=== PATIENT | female | born 1955 | race Caucasian/White ===

== ENCOUNTER → 2016-11-16 | Outpatient (CLI) | payer BC ==
[~2016-11-16] MED LIST: ASPI-113 PO; BNC5 PO; CLB/200 PO; ESCI1TAB10 PO; MULT-13 PO; MULT-506 PO; OXYC-292 PO; SULI200T PO
--- NOTE | 2016-11-16 08:36 | DIAGNOSTIC IMAGING REPORT ---
ABDOMINAL ULTRASOUND, RIGHT UPPER QUADRANT HISTORY: Pain. Nausea. ABNORMAL RESULTS OF LIVER FUNCTION TESTS. COMPARISON: None. FINDINGS: Pancreas: The pancreas demonstrates a normal echotexture. Liver: Fatty infiltration Gallbladder: Surgically removed CBD: 7 mm Right kidney: No hydronephrosis. IMPRESSION: 1. Fatty infiltration of liver. 2. Prior cholecystectomy. Electronically signed by: Regulo Mcintosh M.D. 11/16/2016 8:35 AM Dictated Date/Time: 11/16/2016 8:34 AM
== END | disposition home or self-care (01) ==
LOC: C.ULTRBC 11-13 08:19
PROVIDERS: ATTEND Family Medicine
DX: R94.5 Abnormal results of liver function studies (principal)

== ENCOUNTER → 2016-12-14 | Outpatient (CLI) | payer BC ==
--- NOTE | 2016-12-14 14:03 | MAMMOGRAPHY REPORT ---
BILATERAL DIGITAL SCREENING MAMMOGRAM TOMOSYNTHESIS WITH CAD: 12/14/2016 CLINICAL HISTORY: Routine screening. Patient has no complaints. TECHNIQUE: Breast tomosynthesis in addition to standard 2D mammography was performed. Current study was also evaluated with a Computer Aided Detection (CAD) system. COMPARISON: Comparison is made to exams dated: 12/11/2015 mammogram, 12/06/2014 mammogram, 12/04/2013 m ammogram, 12/02/2012 ultrasound, 12/02/2012 mammogram, and 11/25/2012 mammogram - [facility]. BREAST COMPOSITION: There are scattered areas of fibroglandular density in both breasts. FINDINGS: There is a possible small area of architectural distortion in the anterior right breast, 4 cm distal to the nipple and along the posterior nipple line on the CC view, for which additional spo t compression trauma symphysis views and possible ultrasound are recommended. There is a possible gr ouping of microcalcifications in the left lower inner middle one third of the breast, warranting josé miguel tional spot magnification views. There is a stable metallic biopsy marker in the left breast. No other suspicious mass, architectural distortion or cluster of microcalcifications is seen. IMPRESSION: ACR BI-RADS CATEGORY 0: INCOMPLETE EVALUATION: NEED ADDITIONAL IMAGING EVALUATION The possible grouping of microcalcifications in the left lower inner quadrant, and possible web architect ural distortion in the anterior right breast need additional imaging evaluation. The patient will be called to schedule an appointment. Approximately 10% of breast cancers are not detected with mammography. A negative mammographic report should not delay biopsy if a clinically suggestive mass is present. Vee Barron M.D. ay/:12/14/2016 12:22:20 Head Packager: Patience BAKER)(Abner), [facility] letter sent: Addl Imaging 0 BI-RADS Code: ACR BI-RADS Category 0: Incomplete Evaluation: Need Additional Imaging Evaluation
== END | disposition home or self-care (01) ==
LOC: C.MAMM 07:28
PROVIDERS: ATTEND Family Medicine
DX: Z12.31 Encounter for screening mammogram for malignant neoplasm of breast (principal); R92.0 Mammographic microcalcification found on diagnostic imaging of breast

== ENCOUNTER → 2016-12-21 | Outpatient (CLI) | payer BC ==
--- NOTE | 2016-12-21 16:06 | MAMMOGRAPHY REPORT ---
BILATERAL DIGITAL DIAGNOSTIC MAMMOGRAM TOMOSYNTHESIS AND TARGETED RIGHT ULTRASOUND: 12/21/2016 CLINICAL HISTORY: 61-year-old woman called back from screening mammography for possible architectural distortion in the right breast, and possible grouped microcalcifications in the left breast. Patien t has a history of prior benign left breast stereotactic biopsy. TECHNIQUE: Spot compression right CC and MLO tomosynthesis images, spot magnification left CC and ML views were obtained. COMPARISON: Comparison is made to exams dated: 12/14/2016 mammogram, 12/11/2015 mammogram, 12/06/2014 m ammogram, 12/04/2013 mammogram, 12/02/2012 ultrasound, and 12/02/2012 mammogram - [facility]. BREAST COMPOSITION: There are scattered areas of fibroglandular density in both breasts. FINDINGS: Spot magnification views of the left breast demonstrated approximately 2 loosely grouped a morphous microcalcifications in the lower inner middle to anterior aspect of the breast. There is a stable metallic biopsy marker from prior benign stereotactic biopsy. No obvious associated mass or a rchitectural distortion. The microcalcifications may have been present dating back to 2013 and are m ost likely benign. However, a short interval follow-up diagnostic mammogram including spot magnifica tion views is recommended to ensure stability in 6 months. The spot compression tomosynthesis views of the right breast demonstrate effacement of the possible a rchitectural distortion seen on the screening mammogram. No focal area of architectural distortion i s seen throughout the right breast on both views. There is a possible lobulated mass in the lateral anterior right breast on the spot compression CC tomosynthesis images measuring 6 mm. Further evalua tion with ultrasound was performed. Targeted ultrasound was performed in the right breast including the inferior breast 12:00, retroareol ar, 6:00 and slightly lateral breast. There is a mixed echogenicity multilobulated isoechoic and hyp oechoic solid versus cystic mass in the 9:00 periareolar right breast, measuring 4.0 x 3.9 x 4.0 mm. This may correlate with the nodular mammographic asymmetry seen on the spot compression right CC vie w and is indeterminate given the solid nature. Definitive characterization with an ultrasound-guided core biopsy is recommended. No other discrete solid or cystic mass or focal area of architectural d istortion is seen in the right breast on ultrasound. IMPRESSION: ACR BI-RADS CATEGORY 4B: INTERMEDIATE SUSPICION FOR MALIGNANCY, TARGETED ULTRASOUND ACR BI-RADS CATEGORY 4B: INTERMEDIATE SUSPICION FOR MALIGNANCY 1. Ultrasound guided core biopsy is recommended in the 9:00 periareolar right breast for a multilobu lated 4 mm hypoechoic solid-appearing mass identified on ultrasound, thought to correlate with a nodu lar mammographic asymmetry which was incidentally identified during diagnostic mammography. 2. The possible architectural distortion in the right breast effaces on the supplemental spot compre ssion tomosynthesis views, and there was no suspicious sonographic correlate suggesting this represen cortney overlapping fibrolinear markings. 3. Spot magnification views of the left breast demonstrate approximately 2 amorphous microcalcificat ions in the lower inner quadrant that have a benign appearance and were likely present on prior mammo grams dating back to 2013. However, pending benign pathology results and the right breast, a short i nterval follow-up diagnostic mammogram of the left breast including spot magnification views is read mad to ensure stability in 6 months. These results and recommendations were discussed with the patient at the time of the exam. She tenta tively scheduled the right breast biopsy and left breast follow-up appointment [facility] Approximately 10% of breast cancers are not detected with mammography. A negative mammographic report should not delay biopsy if a clinically suggestive mass is present. Vee Barron M.D. ay/:12/21/2016 14:48:49 Splitter Tender: Dina SMALLWOOD(Erasmo)(Abner), [facility] letter sent: Abnormal 4/5 BI-RADS Code: ACR BI-RADS Category 4B: Intermediate Suspicion For Malignancy Ultrasound BI-RADS: ACR BI-RADS Category 4B: Intermediate Suspicion For Malignancy
== END | disposition home or self-care (01) ==
LOC: C.MAMM 13:21
PROVIDERS: ATTEND Family Medicine
DX: R92.0 Mammographic microcalcification found on diagnostic imaging of breast (principal); N63 Unspecified lump in breast

== ENCOUNTER → 2016-12-29 | Outpatient (CLI) | payer BC ==
--- NOTE | 2016-12-29 14:13 | Discharge Instructions ---
Discharge Instructions Procedure Procedure Date: Dec 29, 2016. Reason for visit: Right Mass. Discharge Discharge Date: Dec 29, 2016. Discharge Diagnosis: post right breast ultrasound guided core biopsy Instructions Activity Recommendations: Additional Limitations (see below) Return to School/Work: no limitations Recommended Home Diet: No Limitations Provider Instructions: ACTIVITY RECOMMENDATIONS: * No lifting, pushing, pulling or exercising the affected side for three days. RETURN TO SCHOOL/WORK: * You may return to work/school after the procedure, but do not perform any strenuous activities for 24 to 48 hours. MEDICATIONS: * Tylenol (two 325 mg) every four to six hours if needed for mild pain (if not allergic to Tylenol). DIET: * Resume previous diet. SPECIAL CARE INSTRUCTIONS: * Keep biopsy site dry for 24 hours. May shower after 24 hours, but do not soak (bathe) incision. * May remove Tegaderm (plastic patch) tomorrow AFTER showering. * Leave the steri-strips on for one week. Allow the steri-strips to fall off by themselves. If not off after one week, you may remove them. You may place a Bandaid crosswise over the strips, if desired. * Apply ice 10 minutes on and 10 minutes off as needed. * Wear a bra at bedtime to sleep more comfortably for 2-3 days. * Your referring physician should have the results after approximately 5 to 7 business days. * Call for unusual bleeding, fever, drainage, etc or if you have any questions call [phone] during normal business hours or after hours call Dr Barron, . FOLLOW UP VISIT: Follow-up with Referring Physician as scheduled. Allergies Coded Allergies: No Known Allergies (Verified , 12/23/12) Nessa Marrufo Recommendations: Call your doctor if: * Temperature above 101 degrees * Pain not relieved by pain medicine ordered * There is increased drainage or redness from any incision * You have any unanswered questions or concerns. Your Doctors Instructions noted above were prepared by provider Vee Barron. Patient Signature Section: Patient Instructions Signature Page Hanny Oh Patient (or Guardian) Signature/Date: I have read and understand the instructions given to me by my caregivers. Caregiver/RN/Doctor Signature/Date: The above-named patient and/or guardian has received patient instructions on this date. + Original Patient Signature Page (only) stays with chart. Please make copy for patient.
--- NOTE | 2016-12-29 14:35 | MAMMOGRAPHY REPORT ---
UNILATERAL RIGHT DIGITAL DIAGNOSTIC MAMMOGRAM TOMOSYNTHESIS: 12/29/2016 CLINICAL HISTORY: Status post ultrasound guided core biopsy of a small nodular and multilobulated hyp oechoic 4 mm mass in the 9:00 right breast. Please refer to the report from right breast ultrasound guided core biopsy performed at the same time for full detail. IMPRESSION: POST PROCEDURE IMAGING FOR MARKER PLACEMENT Please refer to the report from right breast ultrasound guided core biopsy performed at the same time for full detail. Approximately 10% of breast cancers are not detected with mammography. A negative mammographic report should not delay biopsy if a clinically suggestive mass is present. Vee Barron M.D. ay/:12/29/2016 14:11:58 Chrome Tanning Drum Operator: Kathrine SMALLWOOD(Erasmo)(Abner), [facility] BI-RADS Code: Post Procedure Imaging For Marker Placement
--- NOTE | 2016-12-29 14:35 | MAMMOGRAPHY REPORT ---
THIS REPORT HAS BEEN AMENDED. ULTRASOUND GUIDED BIOPSY RIGHT BREAST: 12/29/2016 CLINICAL HISTORY: Indeterminate multilobulated/nodular hypoechoic 4 mm mass in the 9:00 periareolar r ight breast. Patient presents for ultrasound guided core biopsy. COMPARISON: Comparison is made to exams dated: 12/21/2016 mammogram, 12/21/2016 ultrasound, 12/14/2016 ma mmogram, 12/11/2015 mammogram, 12/06/2014 mammogram, and 12/04/2013 mammogram - [facility]. PATIENT CONSENT: The procedure, risks and benefits were discussed with the patient and informed conse nt was obtained both verbally and in writing. Specific risks to this procedure include: bleeding, in fection, puncture of adjacent structure, nontarget biopsy, sampling error, pain, metal allergy and me dication reaction. PROCEDURE DESCRIPTION: A time out was performed and the right breast was agreed as the site of biopsy . The skin was prepped and draped in the usual sterile fashion. The multilobulated hypoechoic mass in the 9:00 right breast was chosen as the target for biopsy. Subcutaneous and intraparenchymal 1% buff ered lidocaine, with and without epinephrine, was administered as local anesthesia. A skin incision w as made. Through the incision, 5 samples were taken with a 14 gauge Achieve biopsy device. A ribbon shaped metallic marker was placed at the biopsy site. Hemostasis was achieved after manual compressio n. The patient tolerated the procedure well and there was no immediate complication. The samples wer e sent to the pathology department in an appropriately labeled container. Postprocedure right CC and ML tomosynthesis images were obtained. A new ribbon-shaped metallic biops y marker is identified in the 9:00 anterior right breast. A 7 x 15 mm asymmetry is seen near the bio psy marker clip which could represent a combination of small amount of hemorrhage and/or lidocaine ad ministration. IMPRESSION: ULTRASOUND GUIDED BIOPSY 1. Status post ultrasound guided core biopsy of an indeterminate multilobulated 4 mm mass in the 9:0 0 right breast, with biopsy marker placed at the site. 2. Pending benign pathology results, recommend follow-up bilateral diagnostic mammograms, to reevalu ate left breast microcalcifications, and a possible area of architectural distortion as well as asymm etry in the right breast. The patient will receive notification of the biopsy results from her referring physician. Vee Barron M.D. ay/:12/29/2016 14:26:14 Small Lot Operator: Kathrine BAKER (R)), [facility] AMENDMENT: 01/06/2017 Vee Barron M.D. Pathology results from the ultrasound-guided core biopsy of a multilobulated hypoechoic mass in the 9 :00 periareolar right breast yielded 1. Fibrocystic change, intraductal hyperplasia, and papillomato sis are all seen. 2. Level III reveals a cystic space with a papillary proliferation most consisten t with a papillary neoplasm. 3. The papillary neoplasm noted above lacks cytologic atypia and revea ls myoepithelial cells H and E stain. 4. The majority of the tissue in this case simply reveals fib rocystic change and intraductal hyperplasia area at level III reveals a well-defined cystic space wit h a papillary proliferation in which the papillary reveal well-defined fibrovascular cores. Clearly, this is most consistent with a papillary neoplasm. The literature concerning excision of partially sampled, benign-appearing papillary neoplasms which are found on biopsy is not entirely consistent. It should be noted that the papillary neoplasm found on level III lacks cytologic atypia. Upon rereview of all prior mammograms including the postprocedure mammograms, the biopsy marker clip aligns with a nodular asymmetry that has been stable in size dating back to at least 11/19/2011, sugg esting this lesion has not significantly changed over the past 5 years. Additionally, the patient is due for follow-up imaging of the right breast in 6 months, as the biopsy marker clip did not align w ith the original area of possible distortion. Nevertheless, surgical consultation for discussion of possible imaging follow-up versus surgical exc isional biopsy is recommended.
== END | disposition home or self-care (01) ==
LOC: C.MAMM 13:23
PROVIDERS: ATTEND Family Medicine
DX: R92.8 Other abnormal and inconclusive findings on diagnostic imaging of breast (principal); N63 Unspecified lump in breast; N62 Hypertrophy of breast; D24.1 Benign neoplasm of right breast

== ENCOUNTER → 2017-06-30 | Outpatient (CLI) | payer OTHER ==
[~2017-06-30] MED LIST changes: +ASPI81TA28 PO; +BUPR100T8 PO; +GLIP-199 PO; +METF-384 PO; +PRAV10TA39 PO; +SITA100T3 PO; +SULI200T4 PO
--- NOTE | 2017-06-30 15:24 | MAMMOGRAPHY REPORT ---
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 She presents for evaluation of both breasts and to reassess a small focal asymmetry with associated microcalcifications in the lo wer inner quadrant of the left breast. TECHNIQUE: Breast tomosynthesis in addition to standard 2D mammography was performed. Spot magnific ation left CC and ML views were also obtained. Current study was also evaluated with a Hair Dresser d Detection (CAD) system. COMPARISON: Comparison is made to exams dated: 12/29/2016 mammogram, 12/29/2016 ultrasound biopsy, 12/21 mammogram, 12/21/2016 ultrasound, 12/14/2016 mammogram, and 12/11/2015 mammogram - [facility]. BREAST COMPOSITION: There are scattered areas of fibroglandular density in both breasts. FINDINGS: There is expected architectural distortion in the upper outer quadrant of the right breast, at the site of recent excisional biopsies. No suspicious mass, unexpected architectural distortion, asymmetry or cluster of microcalcifications is seen in the right breast. Spot magnification views of the left breast redemonstrate a rectangular 9.6 mm focal asymmetry with o f approximately 3 punctate/amorphous microcalcifications in the lower inner middle one third of the b reast. When comparing back to prior spot magnification views, these have not significantly changed c omparing to the spot magnification views obtained on 12/21/2016, and the appearance is very similar d ating back to the 2014 mammograms. The asymmetry has likely been present dating back to at least 200 8, suggesting benignity. However, given the recent diagnosis of right breast atypia, a 12 month foll ow-up left diagnostic mammogram including spot magnification views is recommended to ensure stability . No other new suspicious masses, calcifications, asymmetries or areas of architectural distortion a re identified in the left breast. There is a stable metallic biopsy marker clip in the inferior left breast. IMPRESSION: ACR-BI-RADS CATEGORY 3: PROBABLY BENIGN 1. Expected post surgical changes in the right breast and stable focal asymmetry with few associated punctate/amorphous macro calcifications in the left lower inner breast. Another 12 month follow-up bilateral diagnostic tomosynthesis mammogram including left spot magnification views is recommended t o ensure longer stability of the asymmetry and microcalcifications. These results and recommendations were discussed with the patient at the time of the exam. Approximately 10% of breast cancers are not detected with mammography. A negative mammographic report should not delay biopsy if a clinically suggestive mass is present. Vee Barron M.D. ay/:06/30/2017 09:22:59 Fish Cleaner Machine Tender: Ethan SMALLWOOD(R)(Abner), [facility] letter sent: Follow Up Recommended 3 BI-RADS Code: ACR-BI-RADS Category 3: Probably Benign
== END | disposition home or self-care (01) ==
LOC: C.MAMM 08:27
PROVIDERS: ATTEND Family Medicine
DX: Z09 Encounter for follow-up examination after completed treatment for conditions other than malignant neoplasm (principal); R92.0 Mammographic microcalcification found on diagnostic imaging of breast

== ENCOUNTER → 2017-07-14 | Outpatient (CLI) | payer OTHER ==
[~2017-07-14] MED LIST changes: -ASPI-113 PO; -CLB/200 PO; -MULT-13 PO; -MULT-506 PO; +OPTIRAY 320 IV PRN; -OXYC-292 PO; -SULI200T PO
--- NOTE | 2017-07-14 08:58 | DIAGNOSTIC IMAGING REPORT ---
ABD WITH IV CONTRAST ONLY (CT) HISTORY: 61 years-old Female presents with acute ventral abdominal wall hernia and generalized abdominal pain . COMPARISON: Abdominal ultrasound 11/16/2016 TECHNIQUE: Multiple axial CT images of the abdomen were obtained following the intravenous administration of 93 mL Optiray 320. FINDINGS: There is mild dependent subsegmental bibasilar atelectasis. Solid pleural-based 5 mm nodule of the right lower lobe is seen on image 63 of series 3 with mild adjacent tenting of the underlying subpleural fat. There are additional solid noncalcified nodules of the bilateral lower lobes measuring up to 4 mm. There is no pneumatosis or pneumoperitoneum identified. Imaged inferior cardiac chambers appear mildly enlarged. Hepatomegaly with hepatic steatosis. Prior cholecystectomy. The spleen, pancreas and left adrenal gland are unremarkable. 1.5 x 1.8 cm right adrenal gland adenoma is present. Mild nonspecific bilateral perinephric stranding without renal calculi or obstructive uropathy. Imaged ureters appear unremarkable. Imaged uterus appears unremarkable. Aorta is normal in course and caliber. No bulky adenopathy. There is no bowel obstruction. There is a large ventral abdominal wall hernia along the right lateral abdominal wall which contains the hepatic flexure, cecum, ascending colon, appendix and terminal ileum along with a large amount of mesenteric fat. There is mild stranding of the mesenteric fat within the hernia sac along with trace fluid. Opening of the hernia sac measures 16.5 cm. There is evidence of prior antral abdominal wall herniorrhaphy. Patient obesity noted. The bones appear to be grossly intact. Severe facet arthropathy of the lower lumbar spine along with multilevel discogenic degenerative changes. Multilevel Schmorl's nodes are also seen. IMPRESSION: 1. Large ventral abdominal wall hernia along the right lateral abdominal wall contains hepatic flexure, cecum, ascending colon, appendix and terminal ileum along with a large amount of mesenteric fat. There is mild mesenteric fat stranding with trace fluid within the hernia sac without evidence of bowel obstruction. 2. Hepatomegaly with hepatic steatosis. 3. Several solid noncalcified pulmonary nodules of the lung bases as above measure up to 5 mm. Please refer to below summary of Fleischner criteria recommendations for follow-up of incidental CT nodules (Levi Tuttle, Guidelines for management of small pulmonary nodules detected on CT scans: A statement from the Fleischner Society, Radiology 237: [phone].) SOLID NODULES Multiple nodules size: <6 mm * Low risk patients: no routine follow-up * high risk patients: optional CT at 12 months Note: newly detected indeterminate nodule in persons 35 years of age or older. * Low risk patients: minimal or absent history of smoking and/or other known risk factors * high risk patients: history of smoking or of other known risk factors (e.g. first degree relative with lung cancer, or exposure to asbestos, radon, uranium) * if a nodule up to 8 mm is partly solid or is ground glass further follow-up is required after 24 months to exclude possible slow growing adenocarcinoma (SUZETTE) The above report was generated using voice recognition software. It may contain grammatical, syntax or spelling errors. Electronically signed by: Fredis Bui M.D. 07/14/2017 8:57 AM Dictated Date/Time: 07/14/2017 8:44 AM
== END | disposition home or self-care (01) ==
LOC: C.CTS 07:54
PROVIDERS: ATTEND Family Medicine
DX: K43.9 Ventral hernia without obstruction or gangrene (principal); R10.9 Unspecified abdominal pain

== ENCOUNTER → 2017-07-16 | Day surgery (SDC) | payer OTHER ==
[2017-07-05 09:25] VITALS: Ht 175.3 cm; Wt 159.1 kg
[~2017-07-16] VITALS: Ht 175.3 cm; Wt 159.1 kg
[~2017-07-16] MED LIST changes: +LIDOCAINE HCL 2% 2 ML VIAL (20MG/ML) ONE; -OPTIRAY 320 IV PRN; +PROPOFOL IV EMULSION 10 MG/ML 20 ML VIAL IV ONE
--- NOTE | 2017-07-16 13:22 | Endo History and Physical ---
History & Physical Date of Service: Jul 16, 2017. Chief Complaint: Screening Referring Physician: Ac Cuevas History of Present Illness For colonoscopy Past Surgical History Hx Cardiac Surgery: No Hx Internal Defibrillator: No Hx Pacemaker: Yes Hx Abdominal Surgery: Yes (cholecystectomy, herniorrhaphy) Hx of Implantable Prosthesis: No Hx Post-Op Nausea and Vomiting: No Hx Cancer Surgery: No Hx Thoracic Surgery: No Hx Orthopedic: Yes (RIGHT/LEFT TKA) Hx Urinary Tract Surgery: No Family History IBD Social History Smoking Status: Never Smoker Hx Substance Use: No Hx Alcohol Use: No Allergies Coded Allergies: No Known Allergies (Verified , 07/16/17) Current Medications Reported Home Medications Medications Dose Route/Sig Max Daily Dose Days Date Category Clinoril (Sulindac) 200 Mg Tab 200 Mg PO BID 07/05/17 Reported Pravastatin Sodium 10 Mg Tab 10 Mg PO QAM 07/05/17 Reported Glucophage (Metformin Hcl) 1,000 Mg Tab 1,000 Mg PO QAM 07/05/17 Reported Glucophage (Metformin Hcl) 1,000 Mg Tab 1,500 Mg PO QPM 07/05/17 Reported Glipizide Er (Glipizide) 10 Mg Tab 1 Tab PO BID 07/05/17 Reported Wellbutrin Sr (Bupropion HCl) 100 Mg Ertab 100 Mg PO QAM 07/05/17 Reported Aspirin Ec (Aspirin) 81 Mg Tab 81 Mg PO QAM 07/05/17 Reported Januvia (Sitagliptin Phosphate) 100 Mg Tab 100 Mg PO QAM 07/05/17 Reported Lexapro (Escitalopram Oxalate) 20 Mg Tab 20 Mg PO HS 12/23/12 Reported Benicar (Olmesartan Medoxomil) 5 Mg Tab 5 Mg PO QAM 12/23/12 Reported Vital Signs Weight (Kilograms): 159.09 Height (Feet): 5 Height (Inches): 9 Date Time Temp Pulse Resp B/P (MAP) Pulse Ox O2 Delivery O2 Flow Rate FiO2 07/16/17 12:59 37 71 20 160/88 (112) 94 Room Air Physical Exam General Appearance: + obese Respiratory/Chest: Respiratory effort: no dyspnea Cardiovascular: Heart Auscultation: RRR Abdomen: Bowel Sounds: pertinent finding (Large right incisional hernia) Assessment and Plan For screening colonoscopy
--- NOTE | 2017-07-16 13:51 | Discharge Instructions ---
Endoscopy Patient Instructions Date / Procedure(s) Performed Jul 16, 2017. Colonoscopy Allergy Information Coded Allergies: No Known Allergies (Verified , 07/16/17) Discharge Date / Findings Jul 16, 2017. Diverticulosis, hemorrhoids, hernia Medication Instructions Stopped Medication(s): Metformin stopped 07/13/17 Aspirin stopped 07/14/17 Restart Stopped Medication(s): resume meds Reported Home Medications Medications Dose Route/Sig Max Daily Dose Days Date Category Clinoril (Sulindac) 200 Mg Tab 200 Mg PO BID 07/05/17 Reported Pravastatin Sodium 10 Mg Tab 10 Mg PO QAM 07/05/17 Reported Glucophage (Metformin Hcl) 1,000 Mg Tab 1,000 Mg PO QAM 07/05/17 Reported Glucophage (Metformin Hcl) 1,000 Mg Tab 1,500 Mg PO QPM 07/05/17 Reported Glipizide Er (Glipizide) 10 Mg Tab 1 Tab PO BID 07/05/17 Reported Wellbutrin Sr (Bupropion HCl) 100 Mg Ertab 100 Mg PO QAM 07/05/17 Reported Aspirin Ec (Aspirin) 81 Mg Tab 81 Mg PO QAM 07/05/17 Reported Januvia (Sitagliptin Phosphate) 100 Mg Tab 100 Mg PO QAM 07/05/17 Reported Lexapro (Escitalopram Oxalate) 20 Mg Tab 20 Mg PO HS 12/23/12 Reported Benicar (Olmesartan Medoxomil) 5 Mg Tab 5 Mg PO QAM 12/23/12 Reported Provider Instructions Activity Restrictions - No exercising or heavy lifting for 24 hours. - Do not drink alcohol the day of the procedure. - Do not drive a car or operate machinery until the day after the procedure. - Do not make any important decisions or sign important papers in 24 hours after the procedure. Following Day: - Return to full activity which may include returning to work/school. Diet Start your diet with liquids and light foods (jello, soup, juice, toast). Then eat your usual diet if not nauseated. Treatment For Common After Affects For mild abdominal pain, bloating, or excessive gas: - Rest - Eat lightly - Lie on right side Follow-Up Information Follow-up with Ac Cuevas as scheduled Anesthesia Information What You Should Know You have had a procedure that required some medicine to reduce anxiety and discomfort. This treatment is called moderate sedation. After receiving the treatment, you may be sleepy, but you will be able to breathe on your own. The effects of the treatment may last for several hours. Follow these instructions along with Activity/Diet recommendations noted above: * Do NOT do anything where dizziness or clumsiness would be dangerous. * Rest quietly at home today, then you can be up and about tomorrow. * Have a responsible person stay with you the rest of today. * You may have had an I.V. today. If so, you may take the dressing off later today. Recommendations Call your doctor if: * Trouble breathing * Continuous vomiting for more than 24 hours * Temperature above 101 degrees * Severe abdominal pain or bloating * Pain not relieved by pain medicine ordered * There is increased drainage or redness from any incision * A large amount of rectal bleeding greater than 2-3 tablespoons. (If you had a polyp/s removed or have hemorrhoids, a small amount of blood - from the rectum is to be expected.) * You have any unanswered questions or concerns. IN THE EVENT OF A SERIOUS EMERGENCY, GO TO THE NEAREST EMERGENCY ROOM Your discharge instructions were prepared by provider Johnnie Ely. Patient Instructions Signature Page Hanny Oh Patient (or Guardian) Signature/Date: I have read and understand the instructions given to me by my caregivers. Caregiver/RN/Doctor Signature/Date: The above-named patient and/or guardian has received patient instructions on this date. + Original Patient Signature Page (only) stays with chart. Please make copy for patient.
--- NOTE | 2017-07-16 13:55 | GI REPORT ---
Procedure Date: 07/16/2017 1:28 PM Procedure: Colonoscopy Indications: Screening for colorectal malignant neoplasm Medicines: Propofol total dose 300 mg IV, Lidocaine 40 mg IV Complications: No immediate complications. Estimated Blood Loss: Estimated blood loss: none. Procedure: Pre-Anesthesia Assessment: - Prior to the procedure, a History and Physical was performed, and patient medications, allergies and sensitivities were reviewed. The patient's tolerance of previous anesthesia was reviewed. - The risks and benefits of the procedure and the sedation options and risks were discussed with the patient. All questions were answered and informed consent was obtained. After I obtained informed consent, the scope was passed under direct vision. Throughout the procedure, the patient's blood pressure, pulse, and oxygen saturations were monitored continuously. The scope was introduced through the anus with the intention of advancing to the cecum. The scope was advanced to the transverse colon before the procedure was aborted. Medications were given. The colonoscopy was technically difficult and complex due to ventral hernia. The patient tolerated the procedure well. The quality of the bowel preparation was good. Findings: Non-bleeding internal hemorrhoids were found during endoscopy. The hemorrhoids were mild. A few diverticula were found in the sigmoid colon. Incomplete exam Impression: - Non-bleeding internal hemorrhoids. - Diverticulosis in the sigmoid colon. - No specimens collected. Recommendation: - Discharge patient to home (ambulatory). - Continue present medications. - Return to primary care physician PRN. Johnnie Ely M.D. Johnnie Ely MD 07/16/2017 1:55:27 PM This report has been signed electronically. Note Initiated On: 07/16/2017 1:28 PM I attest to the content of the Intraoperative Record and orders documented therein, exceptions below
[2017-07-16 14:25] VITALS: BP 152/78; PULSE 67; O2SAT 97
--- NOTE | 2017-07-16 14:53 | Anesthesiology Progress Note ---
Anesthesia Post Op Note Date & Time Jul 16, 2017 at 14:53 Vital Signs Pain Intensity: 0 Vital Signs Past 12 Hours Date Time Temp Pulse Resp B/P (MAP) Pulse Ox O2 Delivery O2 Flow Rate FiO2 07/16/17 14:25 67 20 152/78 (102) 97 Room Air 07/16/17 14:10 66 20 166/104 (124) 97 Room Air 07/16/17 13:56 66 20 151/73 (99) 97 Room Air 07/16/17 12:59 37 71 20 160/88 (112) 94 Room Air Notes Mental Status: alert / awake / arousable, participated in evaluation Pt Amnestic to Procedure: Yes Nausea / Vomiting: adequately controlled Pain: adequately controlled Airway Patency, RR, SpO2: stable & adequate BP & HR: stable & adequate Hydration State: stable & adequate Anesthetic Complications: no major complications apparent
== END | disposition home or self-care (01) ==
LOC: C.GI 12:12
PROVIDERS: ATTEND Internal Medicine Gastroenterology
DX: Z12.11 Encounter for screening for malignant neoplasm of colon (principal); K57.30 Diverticulosis of large intestine without perforation or abscess without bleeding; K64.8 Other hemorrhoids; K43.2 Incisional hernia without obstruction or gangrene; E11.9 Type 2 diabetes mellitus without complications; I10 Essential (primary) hypertension; E66.01 Morbid (severe) obesity due to excess calories; G47.33 Obstructive sleep apnea (adult) (pediatric); Z99.89 Dependence on other enabling machines and devices; Z90.49 Acquired absence of other specified parts of digestive tract; Z96.653 Presence of artificial knee joint, bilateral; Z79.82 Long term (current) use of aspirin

== ENCOUNTER → 2017-07-18 | Outpatient (CLI) | payer OTHER ==
[~2017-07-18] MED LIST changes: -LIDOCAINE HCL 2% 2 ML VIAL (20MG/ML) ONE; -PROPOFOL IV EMULSION 10 MG/ML 20 ML VIAL IV ONE
[2017-07-18 10:15] LABS: CREATININE 0.76 mg/dl (0.60-1.20)
== END | disposition home or self-care (01) ==
LOC: C.LAB 09:13
PROVIDERS: ATTEND Family Medicine
DX: E11.9 Type 2 diabetes mellitus without complications (principal)

== ENCOUNTER → 2017-09-13 | Outpatient (CLI) | payer OTHER ==
[~2017-09-13] MED LIST changes: +OPTIRAY 320 IV PRN
--- NOTE | 2017-09-13 09:55 | DIAGNOSTIC IMAGING REPORT ---
CT (CHEST) THORAX WITH CLINICAL HISTORY: 61 years-old Female presenting with MULTIPLE LUNG NODULES. TECHNIQUE: Multidetector CT imaging of the chest was performed after the administration of intravenous contrast. IV contrast: 95 mL of Optiray 320. A dose lowering technique was used consistent with the principles of ALARA (as low as reasonably achievable). COMPARISON: 10/24/2010. CT DOSE (mGy.cm): The estimated cumulative dose is 930.44 mGy.cm. FINDINGS: Manager Operational topogram: Unremarkable. On soft tissue windows, normal thyroid and thoracic inlet. No axillary, supraclavicular, hilar, or mediastinal lymphadenopathy. Normal aorta. Normal heart size. Coronary artery calcification. No pericardial or pleural effusion. Upper abdomen normal. On lung windows, minimal dependent changes likely atelectasis. Solid 4 mm nodule at the left lower lobe (series 4 image 224), unchanged since 2010. Multiple solid fissural nodules noted bilaterally, the largest on the right measuring 5 mm (series 4 image 140) and on the left measuring 4 mm (series 4 image 140). These are unchanged. Nodular opacity at the right lung base is also unchanged (series 4 image 213). No new nodule. Previously noted multifocal consolidation in the left lung is no longer present. Airways patent. On bone windows, degenerative changes of the spine. IMPRESSION: 1. Multiple bilateral solid pulmonary nodules are stable since 2010. No new nodule. Electronically signed by: Antoine Cronin M.D. 09/13/2017 9:54 AM Dictated Date/Time: 09/13/2017 9:43 AM
== END | disposition home or self-care (01) ==
LOC: C.CTS 09:29
PROVIDERS: ATTEND Family Medicine
DX: R91.8 Other nonspecific abnormal finding of lung field (principal)

== ENCOUNTER 2021-08-12 10:23 | Observation (INO) ==
--- NOTE | 2021-08-07 12:44 | Anesthesiology Consultation ---
Date of Service August 07, 2021 Assessment & Plan (1) Encounter for pre-operative examination: - COVID screening: Per assessment on 08/07: Travel screen negative, no known COVID-19 positive contacts or current COVID-19 related symptoms. Patient vaccinated. Surgeon arranging preop COVID testing. Awaiting results. - Preop labs: Per PAT RN, patient states that she was told to have preop labs done DOS. Preop labs done 01/2021 were unremarkable. Will update CBC, BMP, coags, T&S AM DOS. - Check BSG AM DOS Chart Review Chart Review: Acceptable Risk for Surgery (pending preop labs AM DOS) and Patient NOT seen in Pre Admission Testing History Surgery Operation Date: 08/12/21 10:40 Proposed Procedures p Right Lateral Total Hip Arthroplasty - Geoffrey Hernández DO Height/Weight Height: 5 ft 9 in Weight: 138.346 kg Allergies Allergy/AdvReac Type Severity Reaction Status Date / Time lisinopril Allergy Mild Cough Verified 08/07/21 11:28 Medications Home Medications Medication Instructions Recorded Confirmed Last Taken bupropion HCl 100 mg tablet,12 hr 300 mg PO QAM 04/26/18 08/07/21 07/09/21 05:10 sustained-release escitalopram oxalate 20 mg tablet 20 mg PO HS 04/26/18 08/07/21 07/08/21 glipizide 10 mg tablet 10 mg PO BID 04/26/18 08/07/21 07/08/21 metformin 1,000 mg tablet 1,000 mg PO BID 04/26/18 08/07/21 07/08/21 olmesartan 5 mg tablet 5 mg PO QAM 04/26/18 08/07/21 07/09/21 05:10 pravastatin 10 mg tablet 10 mg PO QAM 07/28/20 08/07/21 07/08/21 biotin 1 mg tablet 1 mg PO HS 01/16/21 08/07/21 07/08/21 melatonin 5 mg tablet 5 mg PO HS 01/16/21 08/07/21 07/08/21 meloxicam 15 mg tablet 15 mg PO QAM 01/16/21 08/07/21 07/08/21 metformin 500 mg tablet 500 mg PO HS 01/16/21 08/07/21 07/08/21 sitagliptin 100 mg tablet (Januvia) 100 mg PO QAM 01/16/21 08/07/21 07/08/21 Past Medical History Medical History Abdominal hernia Current Anxiety Diabetes mellitus, type 2 NIDDM History of diverticulitis ~5 years ago History of intestinal obstruction 2018 s/p colon resection HTN (hypertension) Hyperlipidemia Morbid obesity Obstructive sleep apnea CPAP (compliant) Osteoarthritis Restless leg syndrome HX Past Family History Family History Mother Family history of diabetes mellitus Father Family history of diabetes mellitus Other Breast cancer Family history of high blood pressure No family history of adverse response to anesthesia Obstructive sleep apnea Stroke Past Surgical History Surgical History History of arthroscopy Right knee History of breast biopsy Benign History of cataract surgery R/L History of cholecystectomy History of colon resection History of colonoscopy History of herniorrhaphy Abdominal History of total knee replacement R/L [place] teeth removed Social History Smoking Status: Never smoker Do You Dip or Chew Tobacco: No Hx Alcohol Use: No Hx Substance Use: No substance use type: does not use Testing Electrocardiogram Date: 01/21/21 NSR with sinus arrhythmia at 63bpm. Chest X-Ray Date: 01/21/21 FINDINGS: PA and lateral chest radiographs are compared to study dated 11/24/2012 and correlated with chest CT dated 09/13/2017. The cardiomediastinal silhouette is unremarkable. There is mild bibasilar scarring/atelectasis. The lungs and pleural spaces are otherwise clear. There is no pneumothorax. The skeletal structures are osteopenic. The bony thorax appears intact. Degenerative change and hyperkyphosis is noted in the thoracic spine. IMPRESSION: No active disease in the chest.
--- NOTE | 2021-08-07 14:06 | History & Physical Report ---
Date of Service August 07, 2021 Assessment & Plan (1) Osteoarthritis of right hip: We will proceed with a right lateral total hip arthroplasty. Postoperatively she will be started on aspirin for DVT prophylaxis and kept overnight in the hospital for postoperative medical management. She plans to use energy physical therapy upon discharge. History of Present Illness Chief Complaint: Osteoarthritis of the right hip. Primary Care Provider: Ac Alvarado MD Hanny is a pleasant 65-year-old female who is been doing with chronic worsening right hip and groin pain. X-rays and clinical examination have been diagnostic for advanced osteoarthritis of the right hip. After failing conservative treatment, she has elected to proceed with a right lateral total hip arthroplasty. Allergies Allergy/AdvReac Type Severity Reaction Status Date / Time lisinopril Allergy Mild Cough Verified 08/07/21 11:28 Home Medications Medication Instructions Recorded Confirmed Type bupropion HCl 100 mg tablet,12 hr 300 mg PO QAM 04/26/18 08/07/21 History sustained-release escitalopram oxalate 20 mg tablet 20 mg PO HS 04/26/18 08/07/21 History glipizide 10 mg tablet 10 mg PO BID 04/26/18 08/07/21 History metformin 1,000 mg tablet 1,000 mg PO BID 04/26/18 08/07/21 History olmesartan 5 mg tablet 5 mg PO QAM 04/26/18 08/07/21 History pravastatin 10 mg tablet 10 mg PO QAM 07/28/20 08/07/21 History biotin 1 mg tablet 1 mg PO HS 01/16/21 08/07/21 History melatonin 5 mg tablet 5 mg PO HS 01/16/21 08/07/21 History meloxicam 15 mg tablet 15 mg PO QAM 01/16/21 08/07/21 History metformin 500 mg tablet 500 mg PO HS 01/16/21 08/07/21 History sitagliptin 100 mg tablet (Januvia) 100 mg PO QAM 01/16/21 08/07/21 History Past Med/Surg History Medical History Abdominal hernia Current Anxiety Diabetes mellitus, type 2 NIDDM History of diverticulitis ~5 years ago History of intestinal obstruction 2018 s/p colon resection HTN (hypertension) Hyperlipidemia Morbid obesity Obstructive sleep apnea CPAP (compliant) Osteoarthritis Restless leg syndrome HX Surgical History History of arthroscopy Right knee History of breast biopsy Benign History of cataract surgery R/L History of cholecystectomy History of colon resection History of colonoscopy History of herniorrhaphy Abdominal History of total knee replacement R/L [place] teeth removed Family History Mother Family history of diabetes mellitus Father Family history of diabetes mellitus Other Breast cancer Family history of high blood pressure No family history of adverse response to anesthesia Obstructive sleep apnea Stroke Social History Smoking Status: Never smoker Second Hand Exposure: No; Do You Dip or Chew Tobacco: No; Hx Alcohol Use: No Hx Substance Use: No Preferred Language: Lithuanian Communication Ability: Effective [place] [employer] Required: No Beliefs That Will Affect Care: None marital status: Current Living Situation: Spouse Other Information That Helps Us Care for You: No Feels Safe at Home: Yes Safety Concerns: Feels Safe At This Time Assistive Devices: Cane, CPAP and Glasses Review of Systems All systems reviewed & are unremarkable except as noted in HPI & below. Physical Exam On physical examination of her right hip, she ambulates with an antalgic gait. She is decreased range of motion. Most her pain is located within her groin. Constitutional WD/WN, vitals as above Eyes PERRL, conjunctivae normal, anicteric sclerae ENMT external ear and nose normal, oropharynx normal Neck trachea midline, no thyromegaly Respiratory normal respiratory effort Cardiovascular RRR, no murmur, no edema Gastrointestinal (Abdomen) normal bowel sounds, soft, nontender, no hepatosplenomegaly Psychiatric A+Ox3, euthymic affect Results & Data Results & Data Laboratory Results . Diagnostic Findings Postoperative x-rays of the right hip show the prosthesis to be in anatomic alignment without any evidence of fracture, dislocation, or loosening. PG Care Time/CCT Total # of Minutes Spent Total Time Spent with Patient: Total time spent is greater than 50% in coordination of care (as documented) at patient's floor/unit and/or counseling patient: Coding Level of Care Code None Diagnoses Osteoarthritis of right hip M16.11
[~2021-08-12 10:23] MED LIST changes: +ACETAMINOPHEN 500 MG TAB PO SCH; -ASPI81TA28 PO; -BNC5 PO; +BUPIVACAINE 0.5 % 5 MG/1 ML PF 10ML VIAL ONE; -BUPR100T8 PO; -ESCI1TAB10 PO; +FAMOTIDINE 20 MG TAB PO SCH; +GABAPENTIN 600 MG DOSE PO SCH; -GLIP-199 PO; +Ketorolac (*for OR use only*) 30 MG, dexAMETHasone 4 MG, KETAMINE HCL (**OR use only) 1... INFIL SCH; +LR 500ML BOLUS, THEN 15ML/HR IV SCH; +LR 60ML/HR IV SCH; -METF-384 PO; -OPTIRAY 320 IV PRN; -PRAV10TA39 PO; -SITA100T3 PO; -SULI200T4 PO; +TRANEXAMIC ACID 1,000 MG **IV Intra-op IV SCH; +TRANEXAMIC ACID 1,000 MG **IV Pre-op IV SCH; +dexAMETHasone 4 MG TAB PO SCH
[2021-08-12 10:57] LABS: Basophils # (auto) 0.07 K/uL (0-0.2); Basophils % (auto) 0.9 %; Eosinophils # (auto) 0.18 K/uL (0-0.5); Eosinophils % (auto) 2.4 %; Hematocrit (blood only) 39.8 % (37-47); Hemoglobin 13.1 g/dL (12.0-16.0); Immature Granulocytes # (auto) 0.01 K/uL (0.00-0.02); Immature Granulocytes % (auto) 0.1 %; Lymphocytes # (auto) 1.73 K/uL (1.2-3.4); Lymphocytes % (auto) 23.2 %; Mean Corpuscular Hemoglobin 30.9 pg (25-34); Mean Corpuscular Volume 93.9 fL (80-100); Mean Platelet Volume 9.2 fL (7.4-10.4); Monocytes # (auto) 0.41 K/uL (0.11-0.59); Monocytes % (auto) 5.5 %; Neutrophils # (auto) 5.05 K/uL (1.4-6.5); Neutrophils % (auto) 67.9 %; Platelet Count 298 K/uL (130-400); RDW Coefficient of Variation 13.9 % (11.5-14.5); RDW Standard Deviation 47.4 fL (36.4-46.3); Red Blood Count 4.24 M/uL (4.2-5.4); White Blood Count 7.45 K/uL (4.8-10.8)
[2021-08-12] MEDS ORDERED: ORTHO JOINT ANESTHETIC ONE (11:08)
[2021-08-12] MEDS ORDERED: fentaNYL citrate 100 MCG/2 ML VIAL ONE (11:10)
[2021-08-12] MEDS ORDERED: MIDAZOLAM HCL 1 MG/ML 2ML VIAL ONE ×2 (11:10→12:43)
[2021-08-12 11:11] LABS: Partial Thromboplastin Ratio 0.8; Partial Thromboplastin Time 23.2 Seconds (21.0-31.0); Prothrombin Time 10.9 Seconds (9.0-12.0)
[2021-08-12 11:16] LABS: BUN Creatinine Ratio 21.6 (10-20); Calcium 10.1 mg/dl (8.5-10.1); Creatinine Clr Calc Pharmacy 116.2 ml/min; Est GFR (African American) 99.2 ml/min; Est GFR (Non-African American) 85.6 ml/min; Potassium 4.3 mmol/L (3.5-5.1)
[2021-08-12 11:23] LABS: Mean Corpuscular Hgb Conc 32.9 g/dL (32-36)
--- NOTE | 2021-08-12 11:28 | History & Physical Bridge Note ---
Date of Service August 12, 2021 History & Physical Bridge Note I have examined the patient, reviewed the History & Physical and in the interval since the performance of the History & Physical I have noted the following changes of clinical significance: no changes noted
[2021-08-12] MEDS ORDERED: ONDANSETRON INJ 2 MG/ML 2 ML VIAL ONE (12:19)
[2021-08-12] MEDS ORDERED: PROPOFOL IV EMULSION 10 MG/ML 20 ML VIAL IV ONE ×3 (12:19→13:33)
--- NOTE | 2021-08-12 13:19 | XRay Report ---
XR hip RT 1V CLINICAL HISTORY: RT LATERAL TOTAL HIP ARTHROPLASTY. COMPARISON STUDY: 07/28/2020 TECHNIQUE: 2 right hip views FINDINGS: The patient is status post total hip replacement. The prosthetic components are in anatomic alignment with no acute abnormality seen. Skin marcel are seen from the recent procedure. IMPRESSION: 1. Status post total hip replacement ACT 112: Negative or not required by law. Electronically signed by: Julian Cruz M.D. 08/12/2021 1:18 PM
--- NOTE | 2021-08-12 13:47 | Operative Report ---
PG Post Operative Report Pre & Post Diagnosis Operation Date: 08/12/21 12:30 Pre-Op Diagnosis: Degenerative Joint Disease, Right Hip Post-Op Diagnosis: Degenerative Joint Disease, Right Hip I identified the patient and participated in the time-out.: Yes Procedure Operation Date: 08/12/21 12:30 Actual Procedures p Right Lateral Total Hip Arthroplasty - Geoffrey Hernández DO Surgeon Geoffrey Hernández, Bottling Equipment Sales Representative Geoffrey Carlos PAC Estimated Blood Loss 200 Findings Consistent with Post-Op Diagnosis Specimens Right femoral head Complications none Disposition Disposition: Recovery Room Indications Hanny is a pleasant 65-year-old female has been ill with chronic increasing right hip and groin pain. X-rays clinical examination were diagnostic for advanced arthritis of the right hip. After failing conservative treatment, she elected proceed with a right lateral total hip arthroplasty. Description of Procedure Implants used I used a [employer] total hip arthroplasty system with a size 4 standard offset Avenir Complete stem, a 50 mm G7 cup with a 25mm screw, an E1 polyethylene liner, a 36 mm ceramic head with a +3.5 neck. Hanny arrived at the hospital for the above procedure. She was seen in the preoperative holding area and the operative extremity was identified and signed. She was given a spinal anesthetic, a preoperative antibiotic, and TXA. She was then taken back to the operating room and laid on the table in the supine position. She was given basic sedation. She was placed in the lateral decubitus position. The hip was then prepped and draped in sterile fashion. A timeout was done and the patient and the operative extremity was properly identified. A lateral approach was used. Dissection was taken down to the fascia and the IT band was split. The abductors were then exposed. The anterior third of the abductors were then tenotomized off the greater trochanter. The capsule was then excised. The hip was then dislocated. The femoral neck was then resected and the femoral head was removed. The acetabulum was then exposed. Time was spent doing a complete circumferential capsular labral release. Sequential reaming of the acetabulum was done up to a size 49 reamer. A 50 mm G7 cup was then impacted in the place. A single 25 mm screw was placed followed by the polyethylene insert. The surrounding soft tissues were then injected with 60 cc of an orthopedic pain control cocktail. The femur was then exposed. Sequential broaching up to a size 4 broach was done. A standard neck and a +3.5 head were trialed. The hip was then reduced. The hip was brought through a full range of motion and felt to be stable. A single flat plate x-ray was taken and I was happy with the overall alignment and sizing of the components. The hip was then dislocated. The broach was removed. The final size 4 standard offset Avenir's collared stem was then impacted in the place. A +3.536 mm ceramic head was then impacted into place. The hip was then reduced. The hip was brought through full range of motion and felt to be stable. The wound was then irrigated. The abductors were then tenodesed back to the greater trochanter with transosseous FiberWire sutures and side to side sutures. The IT band was then closed with #1 Vicryl suture. Deep fat layer was closed with #1 Vicryl. Skin was closed with 2-0 Vicryl and marcel. She was placed in a soft dressing. She was then transferred to a hospital bed and taken to the postanesthesia care unit in stable condition. She tolerated the procedure well. Geoffrey Carlos PA-C, was present for the entire procedure. He was critical for patient positioning, prepping, draping, retraction exposure, wound closure and application of sterile dressing. I attest to the content of the Intraoperative Record and any orders documented therein. Any exceptions are noted below.
--- NOTE | 2021-08-12 14:26 | XRay Report ---
XR hip 1V RT w pelvis CLINICAL HISTORY: IN PACU - A/P PELVIS and LATERAL HIP . Status post total hip replacement COMPARISON STUDY: 08/12/2021 TECHNIQUE: 2 right hip views FINDINGS: Additional imaging was performed to better evaluate the acetabular component of the patient 's total hip replacement. The patient is status post total hip replacement. The prosthetic components are in anatomic alignment with no acute abnormality seen. Skin marcel are seen from the recent proc edure. IMPRESSION: 1. Status post total hip replacement. ACT 112: Negative or not required by law. Electronically signed by: Julian Cruz M.D. 08/12/2021 2:24 PM
--- NOTE | 2021-08-12 14:55 | Anesthesiology Progress Note ---
Date of Service August 12, 2021 Anesthesia Post Procedure Vital Signs Vital Signs: Temp Pulse Pulse Resp BP Pulse Ox 08/12/21 14:50 67 15 117/70 94 08/12/21 14:40 69 15 124/63 98 08/12/21 14:30 36.9 C 66 14 102/69 100 08/12/21 14:20 64 21 122/65 100 08/12/21 14:10 69 17 123/90 97 08/12/21 14:00 66 17 163/77 H 97 08/12/21 13:51 37 C 73 17 154/81 H 100 08/12/21 11:00 37.1 C 77 20 147/74 H 97 Pain Intensity Right Hip: Pain Intensity: 3 Transfer of Care Handoff Completed per policy Notes Mental Status: alert / awake / arousable Patient Amnestic to Procedure: Yes Nausea / Vomiting: adequately controlled Pain: adequately controlled Airway Patency, RR, SpO2: stable & adequate BP & HR: stable & adequate Hydration State: stable & adequate Neuraxial Anesthesia: was administered and sensory block is resolving Anesthetic Complications: no major complications apparent
[2021-08-12] MEDS ORDERED: HYDROmorphone INJ 0.5 MG/0.5 ML SYR IV PRN (16:03)
[2021-08-12] MEDS ORDERED: ONDANSETRON INJ 2 MG/ML 2 ML VIAL IV PRN (16:03)
[2021-08-12] MEDS ORDERED: PHARMACY GLYCEMIC MGMT CONSULT PRN (16:03)
[2021-08-12] MEDS ORDERED: bisacodyL 10 MG SUPP PR PRN (16:03)
[2021-08-12] MEDS ORDERED: METOCLOPRAMIDE HCL INJ 5 MG/ML 2 ML VIAL IV PRN (16:03)
[2021-08-12] MEDS ORDERED: NALOXONE HCL 0.4 MG/1 ML VIAL/CARP IV PRN (16:03)
[2021-08-12] MEDS ORDERED: MAGNESIUM HYDROXIDE SUSP 30 ML UDC PO PRN (16:03)
[2021-08-12] MEDS: SODIUM CHLORIDE 0.9% 1000ML 1,000 ML IV SCH (16:11)
[2021-08-12] MEDS ORDERED: DEXTROSE 50% 50 ML SYRINGE IV PRN (16:30)
[2021-08-12] MEDS ORDERED: GLUCOSE 40% GEL 15 GM TUBE PO PRN (16:30)
[2021-08-12] MEDS ORDERED: GLUCAGON FOR INJ 1 MG VIAL IM PRN (16:30)
[2021-08-12] MEDS ORDERED: GLUCOSE 10 TABS/TUBE PO PRN (16:30)
[2021-08-12] MEDS ORDERED: CARBOHYDRATES FOR HYPOGLYCEMIA PO PRN (16:30)
[2021-08-12] MEDS: ACETAMINOPHEN 500 MG TAB PO SCH ×2 (16:32→21:57)
[2021-08-12] MEDS: KETOROLAC 30 MG/ML VIAL IV SCH ×2 (17:05→23:50)
[2021-08-12] MEDS: INSULIN ASPART PER UNIT SC SCH ×2 (17:45→21:55)
[2021-08-12] MEDS: ceFAZolin 2000MG 2,000 MG/15 ML SYR IV SCH (19:36)
[2021-08-12] MEDS ORDERED: INSULIN GLARGINE SOLOSTAR 100 UNITS/ML 3 ML PEN SC ONE (20:45)
[2021-08-12] MEDS: DOCUSATE SODIUM 100 MG CAP PO SCH (21:58)
[2021-08-12] MEDS: MELATONIN 3 MG TAB PO SCH (21:59)
[2021-08-12] MEDS: ASPIRIN 81 MG ECTAB PO SCH (22:00)
[2021-08-12] MEDS: ESCITALOPRAM OXALATE 20 MG TAB PO SCH (22:00)
[2021-08-12] MEDS: SENNA 8.6 MG TAB PO SCH (22:01)
[2021-08-13] MEDS ORDERED: INSULIN ASPART PER UNIT SC SCH
[2021-08-13] MEDS ORDERED: INSULIN ASPART PER UNIT SC ONE (02:00)
[2021-08-13] MEDS: SODIUM CHLORIDE 0.9% 1000ML 1,000 ML IV SCH (02:06)
[2021-08-13] MEDS: oxyCODONE HCL IR 5 MG TAB (IMMEDIATE RELEASE) PO PRN ×3 (02:10→23:58)
[2021-08-13] MEDS: ceFAZolin 2000MG 2,000 MG/15 ML SYR IV SCH (03:36)
[2021-08-13] MEDS: ACETAMINOPHEN 500 MG TAB PO SCH ×3 (05:42→22:55)
[2021-08-13] MEDS: KETOROLAC 30 MG/ML VIAL IV SCH ×3 (05:43→17:38)
--- NOTE | 2021-08-13 06:59 | Orthopedic Progress Note ---
Date of Service August 13, 2021 Assessment & Plan (1) Status post right hip replacement: Overall she doing very well. She is having a little bit of pain in the hip but is not too bad. She will be seen by physical therapy today for ambulation and range of motion exercises. She is on aspirin for DVT prophylaxis. If she does well with therapy and if she feels comfortable going home then she can go home today, however, if she is slow with therapy or if she is having a lot of pain I am happy to keep her until tomorrow. We will see how she does today. Chris Gamino was seen and examined at bedside this morning. Overall she doing fairly well. She is having some soreness in the hip but she has been up and ambulating to the bathroom. She has no other complaints. Review of Systems All systems reviewed & are unremarkable except as noted in HPI & below. Physical Exam Physical examination of the right hip, the dressing is clean and dry. Her leg lengths are equal. She has active dorsiflexion plantarflexion of her right ankle.. Results & Data Results & Data Laboratory Results . Diagnostic Findings Postoperative x-rays of the right hip show the prosthesis to be in anatomic alignment without any evidence of fracture, desiccation, or loosening. PG Care Time/CCT Total # of Minutes Spent Total Time Spent with Patient: Total time spent is greater than 50% in coordination of care (as documented) at patient's floor/unit and/or counseling patient: Coding Level of Care Code 90877 Post Operative Follow-Up Diagnoses Status post right hip replacement Z96.641
[2021-08-13] MEDS: OLMESARTAN MEDOXOMIL 5 MG TAB PO SCH (07:46)
[2021-08-13] MEDS: PRAVASTATIN SOD 10 MG TAB PO SCH (07:46)
[2021-08-13] MEDS: buPROPion SR 150 MG TABCR PO SCH (07:47)
[2021-08-13] MEDS: MULTIVITAMIN TAB PO SCH (07:47)
[2021-08-13] MEDS: ASPIRIN 81 MG ECTAB PO SCH ×2 (07:47→20:33)
[2021-08-13] MEDS: DOCUSATE SODIUM 100 MG CAP PO SCH ×2 (07:47→20:33)
[2021-08-13 08:33] LABS: Estimated Average Glucose 203 mg/dl; Hemoglobin A1C 8.7 % (4.5-5.6)
[2021-08-13] MEDS: INSULIN ASPART PER UNIT SC SCH ×4 (08:45→20:42)
[2021-08-13] MEDS ORDERED: INSULIN GLARGINE SOLOSTAR 100 UNITS/ML 3 ML PEN SC ONE (09:00)
[2021-08-13] MEDS: SITagliptin PHOSPHATE 100 MG TAB PO SCH (09:29)
--- NOTE | 2021-08-13 13:46 | Pharmacy Report ---
Pharmacy Glycemic Short Note 2 - Date of Service August 13, 2021 - Glycemic Short BSG Results (Last 24 hours): 08/12/21 08/12/21 08/12/21 13:52 16:52 20:38 POC Glucose 167 H 297 H 254 H 08/13/21 08/13/21 08/13/21 02:01 07:59 12:08 POC Glucose 235 H 176 H 199 H OUTPATIENT ANTIDIABETIC REGIMEN: * metformin 1000 mg PO in AM + 1500 mg PO in PM * Glipizide 10 mg BID * Januvia 100 mg PO daily * HbA1C= 8.7% ASSESSMENT: * Ms Oh is a 65 y/o F with a PMH of T2DM who presents for R hip surgery. Patient received dexamethasone 8 mg PO prior to surgery. * BSG's yesterday were 228386-283 mg/dL and at 0200 was 235 mg/dL. * Patient received 25 units of Lantus and 21 units of Novolog yesterday. * Fasting this morning was 176 mg/dL and lunch was 199 mg/dL. * Lantus 10 units given this morning since fasting was still elevated at > 140 mg/dL indicating patient required more basal insulin. Patient also received additional 7 units of Novolog at 0200. Scale Lantus for this evening based upon weight-based dosing. (total daily dose available as 10-30 units) * Novolog weight-based stress of 2. * Restart Januvia today and metformin tomorrow 08/14/21. PLAN FOR INPATIENT GLYCEMIC CONTROL: * Hold outpatient oral diabetes medications * Januvia restarted 08/13/21 and restart metformin 08/14/21 * Basal insulin * Lantus 10 units SQ this morning then 0-20 units SQ HS depending upon BSG. * Bolus insulin * NovoLog per scale ACHS or Q6hrs while NPO * Goal Range: Low 110 mg/dL - High 140 mg/dL * Correction Factor: 15 mg/dL/unit * Nutritional / Prandial insulin per carb ratio of 1 unit per 6 grams CHO consumed
[2021-08-13] MEDS: ESCITALOPRAM OXALATE 20 MG TAB PO SCH (20:34)
[2021-08-13] MEDS: SENNA 8.6 MG TAB PO SCH (20:35)
[2021-08-13] MEDS: MELATONIN 3 MG TAB PO SCH (20:35)
[2021-08-13] MEDS ORDERED: INSULIN GLARGINE SOLOSTAR 100 UNITS/ML 3 ML PEN SC SCH (21:00)
[2021-08-14] MEDS: ACETAMINOPHEN 500 MG TAB PO SCH ×2 (06:28→14:15)
[2021-08-14] MEDS: KETOROLAC 30 MG/ML VIAL IV SCH ×3 (06:29→13:09)
[2021-08-14] MEDS: SITagliptin PHOSPHATE 100 MG TAB PO SCH (08:07)
[2021-08-14] MEDS: buPROPion SR 150 MG TABCR PO SCH (08:07)
[2021-08-14] MEDS: MULTIVITAMIN TAB PO SCH (08:11)
[2021-08-14] MEDS: PRAVASTATIN SOD 10 MG TAB PO SCH (08:11)
[2021-08-14] MEDS: DOCUSATE SODIUM 100 MG CAP PO SCH (08:11)
[2021-08-14] MEDS: ASPIRIN 81 MG ECTAB PO SCH (08:12)
[2021-08-14] MEDS: OLMESARTAN MEDOXOMIL 5 MG TAB PO SCH (08:14)
[2021-08-14] MEDS ORDERED: metFORMIN HCL 500 MG TAB PO SCH ×2 (09:00→16:30)
[2021-08-14] MEDS ORDERED: INSULIN GLARGINE SOLOSTAR 100 UNITS/ML 3 ML PEN SC SCH (09:00)
[2021-08-14] MEDS: INSULIN ASPART PER UNIT SC SCH ×2 (09:39→13:03)
--- NOTE | 2021-08-14 14:27 | Orthopedic Progress Note ---
Date of Service August 14, 2021 Assessment & Plan (1) Status post right hip replacement: Overall she is doing fairly well. She is not having much pain in the right hip today. She did well today with physical therapy. She is on aspirin for DVT prophylaxis. She can be discharged home later today. She will follow- up with orthopedics in 2 weeks. Chris Gamino was seen and examined at bedside this morning. Overall she is doing fairly well. She is not having much pain in the hip. She has been ambulating well with physical therapy. She is ready to go home. She has no complaints. Review of Systems All systems reviewed & are unremarkable except as noted in HPI & below. Physical Exam On physical examination of the hip, the dressings clean and dry. Her leg lengths are equal. She has active dorsiflexion plantarflexion of the right ankle.. Results & Data Results & Data Laboratory Results . Diagnostic Findings . PG Care Time/CCT Total # of Minutes Spent Total Time Spent with Patient: Total time spent is greater than 50% in coordination of care (as documented) at patient's floor/unit and/or counseling patient: Coding Level of Care Code 30839 Post Operative Follow-Up Diagnoses Status post right hip replacement Z96.641
--- NOTE | 2021-08-14 14:29 | Discharge Summary ---
Date of Service August 14, 2021 Admission HPI (Per Admitting) Hanny is a pleasant 65-year-old female who is been doing with chronic worsening right hip and groin pain. X-rays and clinical examination have been diagnostic for advanced osteoarthritis of the right hip. After failing conservative treatment, she has elected to proceed with a right lateral total hip arthroplasty. Admission Exam (Per Admitting) On physical examination of her right hip, she ambulates with an antalgic gait. She is decreased range of motion. Most her pain is located within her groin. Principal Diagnosis Same as "Discharge Diagnosis" noted below under Discharge Instructions. Discharge Exam On physical examination of the hip, the dressings clean and dry. Her leg lengths are equal. She has active dorsiflexion plantarflexion of the right ankle.. Discharge Data Procedures Performed Operation Date: 08/12/21 12:30 Actual Procedures p Right Lateral Total Hip Arthroplasty - Geoffrey Hernández DO Hospital Course (1) Status post right hip replacement: On August 12, 2021 Hanny arrived at [facility] and underwent a right lateral hip replacement without complication. She had a spinal anesthetic. Postoperatively she was started on aspirin for DVT prophylaxis and transferred to the general orthopedic floors. Her hospital course was uneventful. On postop day #1 her vital signs were stable and her pain was well controlled. She was able to participate well with physical therapy doing ambulation and range of motion exercises. She was a little unsteady on her feet by the afternoon and we decided to keep her an extra day. On postop day #2 she was feeling better. She participated well once again with physical therapy. She was then discharged home. She will follow-up with orthopedics in 2 weeks. PG Care Time/CCT Total # of Minutes Spent Total Time Spent with Patient: Total time spent is greater than 50% in coordination of care (as documented) at patient's floor/unit and/or counseling patient: Discharge Plan Discharge Items Patient Disposition: Home - Self-Care Reason For Visit: DJD Right Hip Discharge Diagnosis: Right hip replacement Activity: As commented below Non-emergency contact: Surgeon Call non-emergency contact if: your wound has increased redness and your wound has increased drainage Follow-up/Referrals: Ac Alvarado MD [Primary Care Provider] - Diet: Carb Consistent or DM2 Addtl Attending Provider Instructions: Activity and Therapy Recommendations: * If you are using [facility] then therapy will be provided at your home until they feel you have accomplished all of your goals. * If you are using [facility] then Physical Therapy will be provided until they feel you are ready to start Outpatient Physical Therapy. * If you are not using home therapy then Outpatient Physical Therapy should st art about 3-5 days from your day of surgery. Therapy will last about 6-10 weeks * You were shown a series of exercises in the hospital. Do these exercises three times each day including the exercises you were shown in physical therapy. * Get up and walk several times each day.~ For the first four weeks, try not to stand or walk for more than one hour at a time. If you do stand or walk for more than one hour, you will not hurt anything, but your leg will likely swell.~~ * As you feel comfortable, you may change from the walker or crutches to a cane and~then to independent walking. Medications: * Narcotic You will likely be sent home from the hospital with a prescription for the narcotic pain medication that worked best throughout your stay. * Aspirin Most patients will be required to take Aspirin 81mg twice a day for 6 weeks after surgery. This is obtained [id number] and a prescription is not necessary. * Other medications may be prescribed for specific circumstances. If you have any questions, please call the office at . * Resume previous home medications unless otherwise instructed TEDs/Elastic Stockings: The white elastic stockings help limit swelling and prevent blood clots from forming in your legs. The more you wear them, the more they work. Wear them for six weeks. Dressing Care: Leave the Silverlon dressing in place for 7 days. After 7 days you may remove the dressing. If the incision is not draining then you may leave the marcel open to air. If there is a little bit of drainage or if the marcel are getting stuck on your clothing then cover the incision with a dry dressing. The marcel will be removed at your 2 week follow-up appointment. Showering: You may shower with the Silverlon dressing in place. Do not let the shower spray hit the dressing directly. Pat the Silverlon dressing dry. If the dressing becomes wet underneath, then simply remove the dressing. Keep the incision dry until you are 7 days out from the day of surgery. After 7 days you may remove the Silverlon dressing and shower with the marcel exposed. Let soapy water run over the marcel and pat them dry. Do not scrub or soak the incision. Things To Watch For: * Drainage from the incision site that occurs more than one week after your surgery. * Increased redness at the incision site. * Fever above 102 degrees Fahrenheit. * Unusual chest pain or shortness of breath. * Call [facility] at with any of the above problems Follow-Up Visit: Follow-up with Dr. Hernández's PA (Geoffrey Carlos) 2-3 weeks after your day of matthews rgery. He will remove your marcel and answer any questions. If you have any additional questions or concerns, Dr Henrández is usually in the office at the same time and will be available An appointment was probably scheduled when you signed-up for surgery in the office. If you have any questions call Office Instructions: More detailed instructions as well as Frequently Asked Questions were provided in a folder by our office when you signed-up for surgery. Please review these instructions when you get home. If you have any further questions or concerns, please feel free to call the office at [phone] Pending Studies at Discharge: No Stand-Alone Forms: [facility], Smoking Cessation Medications and DC Order Prescriptions: New oxycodone-acetaminophen 5-325 mg tablet 1 tab PO Q6H PRN (Reason: pain) Qty: 30 RF: 0 aspirin 81 mg Tablet,Delayed Release (Dr/Ec) 81 mg PO BID 42 Days Qty: 0 RF: 0 Continued metformin 1,000 mg tablet 1,000 mg PO BID RF: 0 glipizide 10 mg tablet 10 mg PO BID RF: 0 olmesartan 5 mg tablet 5 mg PO QAM RF: 0 escitalopram oxalate 20 mg tablet 20 mg PO HS RF: 0 pravastatin 10 mg tablet 10 mg PO QAM RF: 0 metformin 500 mg Tablet 500 mg PO HS RF: 0 meloxicam 15 mg Tablet 15 mg PO QAM RF: 0 biotin 1 mg Tablet 1 mg PO HS RF: 0 Januvia 100 mg Tablet 100 mg PO QAM RF: 0 melatonin 5 mg Tablet 5 mg PO HS RF: 0 bupropion HCl 300 mg tablet extended release 24 hr 300 mg PO DAILY RF: 0 Discharge Orders: Discharge Order (Routine); Ordered 08/13/21 Ordered By: Geoffrey Yoon/Other Patient Handouts: How Your Hip Works, Diabetes Carbs Fats Protein Admission Data Admit Date/Time: 08/12/21 13:52 Attending Provider: Geoffrey Hernández Admit Provider: Geoffrey Hernández Primary Care Provider: Ac Alvarado Other Interventions: Discharge Summary Assessment (RN) Last Done: 08/14/21 11:58
[2021-08-15] MEDS ORDERED: buPROPion XL 300 MG TABCR PO SCH (09:00)
== END 2021-08-14 16:27 | disposition home or self-care (01) ==
LOC: 3W 10:23 → ASU 10:23

== ENCOUNTER 2022-12-01 15:58 | Inpatient (IN) ==
--- NOTE | 2022-12-01 16:11 | ED Triage Note ---
Date of Service December 01, 2022 History of Present Illness This patient was briefly evaluated while in triage. An abbreviated physical exam was performed. This patient is a 67-year-old Female who presents to the ED for evaluation of fevers and chills. Temp 102.4 at home. On Chemo with last tx 11/26. Follows with Dr Kaur at [facility] for Oncology. Patient appears ill on arrival and has been made a priority patient. Physical Exam Limited Triage Exam: VITALS: Vitals are noted on the nurse's note and reviewed by myself. Vital signs with hypotension and tachycardia GENERAL: Ill appearing white female HEART: Regular rate and rhythm LUNGS: Clear to auscultation bilaterally without wheezes, rales or rhonchi. No retractions or accessory muscle use. NEURO: Patient was alert and oriented to person place and time. CN II through XII grossly intact. Initial orders for labs and / or imaging were placed and patient was placed in the waiting area until a bed is available. Please see further documentation for the full ED course. MDM / Impression Impression Impression: Acute pyelonephritis, Neutropenic sepsis, Acute hypotension, Fever Impression: Fever Qualifiers: Fever type: unspecified Qualified Code(s): R50.9 - Fever, unspecified
[2022-12-01] MEDS ORDERED: SODIUM CHLORIDE 0.9% 1000ML 1,000 ML IV SCH (16:15)
[2022-12-01] MEDS ORDERED: CEFEPIME 2,000 MG/20 ML VIAL IV STA (16:21)
--- NOTE | 2022-12-01 16:24 | Emergency Department Note ---
Impression & Plan Acute pyelonephritis, Neutropenic sepsis, Acute hypotension, Fever ED Provider Note NAME: CHINO ARMANDO AGE: 67 SEX: F : 1955 ARRIVES VIA: Walk-In INFORMANT: Patient, ED PROVIDER(S): Jarrod Wadsworth DO CHIEF COMPLAINT: Fever HPI: The patient is a 67-year-old female who presented to the emergency department for an evaluation of fever. The patient started noticing fever over the last 24 hours but she has been experiencing UTI symptoms over the last week. Her urine was checked and not found to be consistent with urinary tract inf ection. She does have a history of cancer and is being treated at the cancer center in [facility]. She called her today and reported her fever and she was referred to the emergency department. She does complain of generalized weakness as well as dizziness. She denies having any cough or chest pain. She denies having any headache. She denies having any rashes. ROS: See above HPI for pertinent positives & negatives. A total of 10 systems re viewed and were otherwise negative. PAST MEDICAL HISTORY: See Below PAST SURGICAL HISTORY: See Below FAMILY HISTORY: See Below SOCIAL HISTORY: See Below HOME MEDICATIONS: See Below ALLERGIES: See Below VITALS: See Below PHYSICAL EXAMINATION: GENERAL: The patient is awake and alert. She is somewhat anxious appearing. EYES: The conjunctivae are clear. The pupils are round and reactive. EARS, NOSE, MOUTH AND THROAT: The nose is without any evidence of any deformity. Mucous membranes are dry. NECK: The neck is nontender and supple. RESPIRATORY: Normal respiratory effort is noted there is no evidence of wheezing rhonchi or rales CARDIOVASCULAR: Tachycardic and regular heart sounds were noted to auscultation. There is no definite murmur. GASTROINTESTINAL: Abdomen was mildly distended but soft. There is no specific guarding or rigidity noted. MUSCULOSKELETAL/EXTREMITIES: There is no evidence of gross deformity full range of motion is noted in the hips and shoulders. SKIN: Skin is warm and dry. Trace pedal edema was noted bilaterally. NEUROLOGIC: Patient is awake alert and oriented x3. MEDICAL DECISION MAKING: The patient is a 67-year-old female who has a history of B-cell lymphoma who presented to the emergency department for febrile illness. The patient had chemotherapy recently. She also has a history of diabetes and she has been noticing urinary tract infection symptoms. She had a urinalysis recently which did not appear to be consistent with infection. She started developing fever today and was advised to go to the emergency department by her oncology group. I discussed the patient's laboratory and radiographic studies with her. She was resuscitated using IV fluids. She was also treated with empiric IV antibiotics. I discussed the patient's condition with the on-call [facility] hospitalist. The patient was reevaluated multiple times. Given her urinary symptoms CT of the abdomen pelvis was obtained to ensure there is no underlying intra-abdominal process causing the symptoms. Triage Nursing notes reviewed. Prior medical records reviewed Vital Signs: reviewed and remarkable for no significant abnormalities Differential diagnosis: Viral syndrome, otitis, pharyngitis, pneumonia, influenza, meningitis, urinary tract infection, sepsis, bacteremia, as well as other pathologies. ER treatment provided: See below Diagnostics interpreted by me: ECG: EKG was obtained in the emergency department. My interpretation is sinus tachycardia at 125 bpm. There is no ectopy. Nonspecific ST segment abnormal ities were noted. This was compared to a tracing from January 21, 2021. There is an increase in the rate otherwise no significant changes were noted. Cardiac Monitoring: An order was placed for continuous cardiac monitoring. The monitor shows a rate of 96 bpm with sinus rhythm. Laboratory studies: As stated above and show below. Imaging studies: See below. Radiographic imaging was reviewed by myself Consultation(s): I discussed this case with Dr. Saunders who is on-call for the [place] [facility] group. ED COURSE: Procedures: none Critical Care: I have personally spent greater than 45 minutes of critical care time in the [facility] management of this patient. This includes bedside care, interpretation of diagnostic studies, and testing, discussion with consultants, patient, and family members, and other required patient management activities. This 45 minutes is in excess of all separately billable procedures. Past Med/Surg History Medical History (Updated 12/01/22 @ 21:35 by Jarrod Wadsworth DO) Abdominal hernia Current Anxiety Diabetes mellitus, type 2 NIDDM History of diverticulitis ~5 years ago History of intestinal obstruction 2018 s/p colon resection HTN (hypertension) Hyperlipidemia Morbid obesity Obstructive sleep apnea CPAP (compliant) Osteoarthritis Restless leg syndrome HX Surgical History History of arthroscopy Right knee History of breast biopsy Benign History of cataract surgery R/L History of cholecystectomy History of colon resection History of colonoscopy History of herniorrhaphy Abdominal History of total knee replacement R/L [place] teeth removed Family History Mother Family history of diabetes mellitus Father Family history of diabetes mellitus Other Breast cancer Family history of high blood pressure No family history of adverse response to anesthesia Obstructive sleep apnea Stroke Social History Smoking Status: Never smoker Second Hand Exposure: No; Do You Dip or Chew Tobacco: No; Tobacco Cessation Education Requested by Patient: No Hx Alcohol Use: No Hx Substance Use: No Preferred Language: Kosovan Communication Ability: Effective Ab Initio Etl Developer Required: No Beliefs That Will Affect Care: None marital status: Current Living Situation: Spouse How many Children do You have: 1 Other Information That Helps Us Care for You: No Feels Safe at Home: Yes Safety Concerns: Feels Safe At This Time Assistive Devices: Cane Allergies Allergies Allergy/AdvReac Type Severity Reaction Status Date / Time lisinopril Allergy Mild Cough Verified 12/01/22 17:32 Home Meds Home Medications Medication Instructions Recorded Confirmed glipizide 10 mg tablet 10 mg PO BID 04/26/18 12/01/22 metformin 1,000 mg tablet 1,000 mg PO BID 04/26/18 12/01/22 olmesartan 5 mg tablet 5 mg PO QAM 04/26/18 12/01/22 pravastatin 10 mg tablet 10 mg PO QAM 07/28/20 12/01/22 melatonin 5 mg tablet 5 mg PO HS 01/16/21 12/01/22 metformin 500 mg tablet 500 mg PO HS 01/16/21 12/01/22 sitagliptin phosphate 100 mg 100 mg PO QAM 01/16/21 12/01/22 tablet (Januvia) bupropion HCl 300 mg 24 hr tablet, 300 mg PO DAILY 08/14/21 12/01/22 extended release R-Chop Chemo 1 dose IV MO 12/01/22 12/01/22 acetaminophen 650 mg 1,300 mg PO Q12H PRN Pain 12/01/22 12/01/22 tablet,extended release ondansetron HCl 8 mg tablet 8 mg PO Q8 PRN Nausea 12/01/22 12/01/22 prednisone 50 mg tablet 100 mg PO DIRECTED 12/01/22 12/01/22 Previous Rx's Medication Instructions Recorded meloxicam 15 mg tablet 15 mg PO QAM #20 tabs 12/26/21 amoxicillin 500 mg tablet 2,000 mg PO ONCE PRN prophylaxis 03/10/22 #4 tabs Results & Data (ED) Vital Signs Vital Signs - 24 hr 12/01/22 16:07 12/01/22 16:32 12/01/22 16:25 Temperature 37.5 C Temperature Source Oral Pulse Rate 136 H 128 H Pulse Rate [Apical] 123 H Pulse Rate from SpO2 Sensor Pulse Rhythm [Apical] Regular Respiratory Rate 22 16 Respiratory Effort / Characteristics Non-Labored Spontaneous Non-Labored Respiratory Depth Normal Normal Blood Pressure 82/49 L Blood Pressure [Left Arm] 108/68 Blood Pressure Mean 60 Blood Pressure Mean [Left Arm] 81 Pulse Oximetry 97 97 Oxygen Delivery Method Room Air Room Air Sepsis Recent Fever Within 48 Hours Yes Sepsis New/Unexplained Change in Mental Status N/A Sepsis Action Taken by Nursing No Action Required 12/01/22 17:52 12/01/22 19:00 12/01/22 18:50 Temperature 37.3 C Temperature Source Oral Pulse Rate 108 H Pulse Rate [Apical] 96 H Pulse Rate from SpO2 Sensor 109 H Pulse Rhythm [Apical] Respiratory Rate 20 20 Respiratory Effort / Characteristics Non-Labored Spontaneous Respiratory Depth Normal Blood Pressure Blood Pressure [Left Arm] 97/49 L Blood Pressure Mean Blood Pressure Mean [Left Arm] 65 Pulse Oximetry 97 94 95 Oxygen Delivery Method Room Air Room Air Sepsis Recent Fever Within 48 Hours Sepsis New/Unexplained Change in Mental Status Sepsis Action Taken by Nursing 12/01/22 19:00 12/01/22 19:03 Temperature Temperature Source Pulse Rate 106 H 105 H Pulse Rate [Apical] Pulse Rate from SpO2 Sensor 105 H 105 H Pulse Rhythm [Apical] Respiratory Rate 14 19 Respiratory Effort / Characteristics Respiratory Depth Blood Pressure 97/49 L Blood Pressure [Left Arm] Blood Pressure Mean 65 Blood Pressure Mean [Left Arm] Pulse Oximetry 94 97 Oxygen Delivery Method Sepsis Recent Fever Within 48 Hours Sepsis New/Unexplained Change in Mental Status Sepsis Action Taken by Care Home Medications Current Medication List: was personally reviewed by me Laboratory Data Attestation: I reviewed the patient's lab results. 12/01/22 16:11 07/18/23 16:11 Lab Results 12/01/22 12/01/22 12/01/22 Range/Units 16:11 16:11 16:11 WBC 0.12 L* (4.8-10.8) K/ul RBC 2.91 L (4.20-5.40) M/uL Hgb 9.4 L (12.0-16.0) g/dl Hct 29.6 L (37.0-47.0) % MCV 101.7 H (80.0-100.0) fL MCH 32.3 (25.0-34.0) pg MCHC 31.8 L (32.0-36.0) g/dL RDW Std Deviation 69.2 H (36.4-46.3) fL RDW Coeff of Madelyn 18.3 H (11.5-14.5) % Plt Count 162 (130-400) K/uL MPV 9.2 L (9.4-12.4) fL Immature Gran % (Auto) Cancelled Neut % (Auto) Cancelled Lymph % (Auto) Cancelled [place] % (Auto) Cancelled Eos % (Auto) Cancelled Baso % (Auto) Cancelled Neut # (Auto) Cancelled Lymph # (Auto) Cancelled [place] # (Auto) Cancelled Eos # (Auto) Cancelled Baso # (Auto) Cancelled Immature Gran # (Auto) Cancelled Neutrophils % (Manual) Cancelled Band Neutrophils % Cancelled Lymphocytes % (Manual) Cancelled Prolymphocyte % Cancelled Reactive Lymphs % (Man) Cancelled Monocytes % (Manual) Cancelled Eosinophils % (Manual) Cancelled Basophils % (Manual) Cancelled Metamyelocytes % (Man) Cancelled Myelocytes % (Man) Cancelled Promyelocytes % (Man) Cancelled Blast Cells % (Manual) Cancelled Plasma Cell % (Manual) Cancelled Other Cells % Cancelled Nucleated RBC % Cancelled Neutrophils # (Manual) Cancelled Band Neutrophils # Cancelled Total Absolute Neuts Cancelled Lymphocytes # (Manual) Cancelled Prolymphocyte # Cancelled Reactive Lymphs # Cancelled Total Abs Lymphocytes Cancelled Monocytes # (Manual) Cancelled Eosinophils # (Manual) Cancelled Basophils # (Manual) Cancelled Metamyelocytes # (Man) Cancelled Myelocytes # (Manual) Cancelled Promyelocytes # (Man) Cancelled Blast Cells # (Man) Cancelled Plasma Cell # (Manual) Cancelled Other Cells # Cancelled Nucleated RBCs # (Man) Cancelled Hypersegmented Neuts Cancelled Hyposegmented Neuts Cancelled Hypogranular Neuts Cancelled Large Granular Lymphs Cancelled # Lrg Granular Lymphs Cancelled Hairy Cells Cancelled Smudge Cells Cancelled Toxic Granulation Cancelled Toxic Vacuolation Cancelled Dohle Bodies Cancelled Gayle Rods Cancelled Hypogranular Platelets Cancelled Giant Platelets Cancelled Platelet Satelliting Cancelled RBC Morphology Cancelled Polychromasia Cancelled Hypochromasia Cancelled Poikilocytosis Cancelled Basophilic Stippling Cancelled Anisocytosis Cancelled Microcytosis Cancelled Macrocytosis Cancelled Spherocytes Cancelled Pappenheimer Bodies Cancelled Sickle Cells Cancelled Target Cells Cancelled Tear Drop Cells Cancelled Ovalocytes Cancelled Stomatocytes Cancelled [place] Bodies Cancelled Echinocytes Cancelled Acanthocytes (Spur) Cancelled Rouleaux Cancelled RBC Agglutinates Cancelled Schistocytes Cancelled Sezary Cell Cancelled PT Cancelled INR Cancelled APTT Cancelled PTT Ratio Cancelled Sodium 138 (136-145) mmol/L Potassium 3.9 (3.5-5.1) mmol/L Chloride 105 (98-107) mmol/L Carbon Dioxide 20 L (21-32) mmol/L Anion Gap 13 H (3-11) BUN 23 (6-23) mg/dl Creatinine 0.70 (0.6-1.2) mg/dl Est Cr Clr Drug Dosing Not Reportable Est GFR ( Amer) 104.6 ml/min Est GFR (Non-Af Amer) 90.3 ml/min BUN/Creatinine Ratio 32.9 H (10-20) Glucose 199 H (70-99(Fasting)) mg/dl Lactate (0.4-2.0) mmol/L Calcium 10.1 (8.6-10.3) mg/dl Magnesium 1.4 L (1.7-2.4) mg/dl Total Bilirubin 0.6 (0.2-1.0) mg/dl Direct Bilirubin 0.2 (0-0.2) mg/dl AST 11 L (13-39) U/L ALT 11 (7-52) U/L Alkaline Phosphatase 114 H (34-104) U/L Troponin I High Sens 18.9 H (0-14) pg/ml Total Protein 6.6 (6.0-8.3) gm/dl Albumin 4.2 (3.4-5.0) gm/dl Procalcitonin (0-0.5) ng/ml Adenovirus (PCR) (NotDetected) B. pertussis DNA (PCR) (NotDetected) B.parapertussis DNA PCR (NotDetected) C. pneumoniae DNA (PCR) (NotDetected) Coronavirus OC43 (PCR) (NotDetected) Coronavirus HKU1 (PCR) (NotDetected) Coronavirus 229E (PCR) (NotDetected) SARS-CoV-2 (PCR) (NotDetected) Coronavirus NL63 (PCR) (NotDetected) Human Metapneumovir PCR (NotDetected) Influenza Type A (PCR) (NotDetected) Influenza Type B (PCR) (NotDetected) M. pneumoniae (PCR) (NotDetected) Parainfluenza 1 (PCR) (NotDetected) Parainfluenza 2 (PCR) (NotDetected) Parainfluenza 3 (PCR) (NotDetected) Parainfluenza 4 (PCR) (NotDetected) RSV (PCR) (NotDetected) Entero/Rhino (PCR) (NotDetected) Blood Parasites ID Cancelled 12/01/22 12/01/22 12/01/22 Range/Units 16:11 16:11 16:57 WBC (4.8-10.8) K/ul RBC (4.20-5.40) M/uL Hgb (12.0-16.0) g/dl Hct (37.0-47.0) % MCV (80.0-100.0) fL MCH (25.0-34.0) pg MCHC (32.0-36.0) g/dL RDW Std Deviation (36.4-46.3) fL RDW Coeff of Madelyn (11.5-14.5) % Plt Count (130-400) K/uL MPV (9.4-12.4) fL Immature Gran % (Auto) Neut % (Auto) Lymph % (Auto) [place] % (Auto) Eos % (Auto) Baso % (Auto) Neut # (Auto) Lymph # (Auto) [place] # (Auto) Eos # (Auto) Baso # (Auto) Immature Gran # (Auto) Neutrophils % (Manual) Band Neutrophils % Lymphocytes % (Manual) Prolymphocyte % Reactive Lymphs % (Man) Monocytes % (Manual) Eosinophils % (Manual) Basophils % (Manual) Metamyelocytes % (Man) Myelocytes % (Man) Promyelocytes % (Man) Blast Cells % (Manual) Plasma Cell % (Manual) Other Cells % Nucleated RBC % Neutrophils # (Manual) Band Neutrophils # Total Absolute Neuts Lymphocytes # (Manual) Prolymphocyte # Reactive Lymphs # Total Abs Lymphocytes Monocytes # (Manual) Eosinophils # (Manual) Basophils # (Manual) Metamyelocytes # (Man) Myelocytes # (Manual) Promyelocytes # (Man) Blast Cells # (Man) Plasma Cell # (Manual) Other Cells # Nucleated RBCs # (Man) Hypersegmented Neuts Hyposegmented Neuts Hypogranular Neuts Large Granular Lymphs # Lrg Granular Lymphs Hairy Cells Smudge Cells Toxic Granulation Toxic Vacuolation Dohle Bodies Gayle Rods Hypogranular Platelets Giant Platelets Platelet Satelliting RBC Morphology Polychromasia Hypochromasia Poikilocytosis Basophilic Stippling Anisocytosis Microcytosis Macrocytosis Spherocytes Pappenheimer Bodies Sickle Cells Target Cells Tear Drop Cells Ovalocytes Stomatocytes [place] Bodies Echinocytes Acanthocytes (Spur) Rouleaux RBC Agglutinates Schistocytes Sezary Cell PT INR APTT PTT Ratio Sodium (136-145) mmol/L Potassium (3.5-5.1) mmol/L Chloride (98-107) mmol/L Carbon Dioxide (21-32) mmol/L Anion Gap (3-11) BUN (6-23) mg/dl Creatinine (0.6-1.2) mg/dl Est Cr Clr Drug Dosing Est GFR ( Amer) ml/min Est GFR (Non-Af Amer) ml/min BUN/Creatinine Ratio (10-20) Glucose (70-99(Fasting)) mg/dl Lactate 5.6 H* (0.4-2.0) mmol/L Calcium (8.6-10.3) mg/dl Magnesium (1.7-2.4) mg/dl Total Bilirubin (0.2-1.0) mg/dl Direct Bilirubin (0-0.2) mg/dl AST (13-39) U/L ALT (7-52) U/L Alkaline Phosphatase (34-104) U/L Troponin I High Sens (0-14) pg/ml Total Protein (6.0-8.3) gm/dl Albumin (3.4-5.0) gm/dl Procalcitonin 1.41 H (0-0.5) ng/ml Adenovirus (PCR) Not Detected (NotDetected) B. pertussis DNA (PCR) Not Detected (NotDetected) B.parapertussis DNA PCR Not Detected (NotDetected) C. pneumoniae DNA (PCR) Not Detected (NotDetected) Coronavirus OC43 (PCR) Not Detected (NotDetected) Coronavirus HKU1 (PCR) Not Detected (NotDetected) Coronavirus 229E (PCR) Not Detected (NotDetected) SARS-CoV-2 (PCR) Not Detected (NotDetected) Coronavirus NL63 (PCR) Not Detected (NotDetected) Human Metapneumovir PCR Not Detected (NotDetected) Influenza Type A (PCR) Not Detected (NotDetected) Influenza Type B (PCR) Not Detected (NotDetected) M. pneumoniae (PCR) Not Detected (NotDetected) Parainfluenza 1 (PCR) Not Detected (NotDetected) Parainfluenza 2 (PCR) Not Detected (NotDetected) Parainfluenza 3 (PCR) Not Detected (NotDetected) Parainfluenza 4 (PCR) Not Detected (NotDetected) RSV (PCR) Not Detected (NotDetected) Entero/Rhino (PCR) Not Detected (NotDetected) Blood Parasites ID 12/01/22 12/01/22 Range/Units 18:05 18:08 WBC (4.8-10.8) K/ul RBC (4.20-5.40) M/uL Hgb (12.0-16.0) g/dl Hct (37.0-47.0) % MCV (80.0-100.0) fL MCH (25.0-34.0) pg MCHC (32.0-36.0) g/dL RDW Std Deviation (36.4-46.3) fL RDW Coeff of Madelyn (11.5-14.5) % Plt Count (130-400) K/uL MPV (9.4-12.4) fL Immature Gran % (Auto) Neut % (Auto) Lymph % (Auto) [place] % (Auto) Eos % (Auto) Baso % (Auto) Neut # (Auto) Lymph # (Auto) [place] # (Auto) Eos # (Auto) Baso # (Auto) Immature Gran # (Auto) Neutrophils % (Manual) Band Neutrophils % Lymphocytes % (Manual) Prolymphocyte % Reactive Lymphs % (Man) Monocytes % (Manual) Eosinophils % (Manual) Basophils % (Manual) Metamyelocytes % (Man) Myelocytes % (Man) Promyelocytes % (Man) Blast Cells % (Manual) Plasma Cell % (Manual) Other Cells % Nucleated RBC % Neutrophils # (Manual) Band Neutrophils # Total Absolute Neuts Lymphocytes # (Manual) Prolymphocyte # Reactive Lymphs # Total Abs Lymphocytes Monocytes # (Manual) Eosinophils # (Manual) Basophils # (Manual) Metamyelocytes # (Man) Myelocytes # (Manual) Promyelocytes # (Man) Blast Cells # (Man) Plasma Cell # (Manual) Other Cells # Nucleated RBCs # (Man) Hypersegmented Neuts Hyposegmented Neuts Hypogranular Neuts Large Granular Lymphs # Lrg Granular Lymphs Hairy Cells Smudge Cells Toxic Granulation Toxic Vacuolation Dohle Bodies Gayle Rods Hypogranular Platelets Giant Platelets Platelet Satelliting RBC Morphology Polychromasia Hypochromasia Poikilocytosis Basophilic Stippling Anisocytosis Microcytosis Macrocytosis Spherocytes Pappenheimer Bodies Sickle Cells Target Cells Tear Drop Cells Ovalocytes Stomatocytes [place] Bodies Echinocytes Acanthocytes (Spur) Rouleaux RBC Agglutinates Schistocytes Sezary Cell PT 11.6 INR 1.1 APTT 21.8 PTT Ratio 0.8 Sodium (136-145) mmol/L Potassium (3.5-5.1) mmol/L Chloride (98-107) mmol/L Carbon Dioxide (21-32) mmol/L Anion Gap (3-11) BUN (6-23) mg/dl Creatinine (0.6-1.2) mg/dl Est Cr Clr Drug Dosing Est GFR ( Amer) ml/min Est GFR (Non-Af Amer) ml/min BUN/Creatinine Ratio (10-20) Glucose (70-99(Fasting)) mg/dl Lactate 4.8 H* (0.4-2.0) mmol/L Calcium (8.6-10.3) mg/dl Magnesium (1.7-2.4) mg/dl Total Bilirubin (0.2-1.0) mg/dl Direct Bilirubin (0-0.2) mg/dl AST (13-39) U/L ALT (7-52) U/L Alkaline Phosphatase (34-104) U/L Troponin I High Sens (0-14) pg/ml Total Protein (6.0-8.3) gm/dl Albumin (3.4-5.0) gm/dl Procalcitonin (0-0.5) ng/ml Adenovirus (PCR) (NotDetected) B. pertussis DNA (PCR) (NotDetected) B.parapertussis DNA PCR (NotDetected) C. pneumoniae DNA (PCR) (NotDetected) Coronavirus OC43 (PCR) (NotDetected) Coronavirus HKU1 (PCR) (NotDetected) Coronavirus 229E (PCR) (NotDetected) SARS-CoV-2 (PCR) (NotDetected) Coronavirus NL63 (PCR) (NotDetected) Human Metapneumovir PCR (NotDetected) Influenza Type A (PCR) (NotDetected) Influenza Type B (PCR) (NotDetected) M. pneumoniae (PCR) (NotDetected) Parainfluenza 1 (PCR) (NotDetected) Parainfluenza 2 (PCR) (NotDetected) Parainfluenza 3 (PCR) (NotDetected) Parainfluenza 4 (PCR) (NotDetected) RSV (PCR) (NotDetected) Entero/Rhino (PCR) (NotDetected) Blood Parasites ID Administered Medications Vancomycin HCl 2,500 mg/ (Sodium Chloride) 550 mls @ 180 mls/hr IV NOW STA Stop: 12/01/22 22:01 Last Admin: 12/01/22 19:11 Dose: 180 mls/hr Documented By: CAW Discontinued Medications Sodium Chloride (Nss 1000ml) 1,000 mls @ 999 mls/hr IV .Q1H1M LEXI Stop: 12/01/22 17:15 Last Infusion: 12/01/22 17:58 Dose: 0 mls/hr Documented By: Admin: 12/01/22 16:50 Dose: 999 mls/hr Documented By: ISSA Cefepime HCl (Maxipime) 2,000 mg in 20 mls @ 5 mls/min IV NOW STA; Protocol Stop: 12/01/22 16:24 Last Admin: 12/01/22 17:05 Dose: 5 mls/min Documented By: ISSA Sodium Chloride (Nss 1000ml) 1,000 mls @ 999 mls/hr IV .Q1H1M ONE Stop: 12/01/22 17:53 Last Infusion: 12/01/22 19:12 Dose: 0 mls/hr Documented By: Admin: 12/01/22 17:05 Dose: 999 mls/hr Documented By: ISSA Magnesium Sulfate/Dextrose (Magnesium Sulfate / D5w) 1 gm in 100 mls @ 100 mls/hr IV NOW STA Stop: 12/01/22 18:11 Last Infusion: 12/01/22 19:12 Dose: 0 mls/hr Documented By: Admin: 12/01/22 17:45 Dose: 100 mls/hr Documented By: SUPRIYA Sodium Chloride (Nss) 500 mls @ 999 mls/hr IV .Q31M ONE Stop: 12/01/22 18:42 Last Admin: 12/01/22 20:03 Dose: 999 mls/hr Documented By: HOLA Sodium Chloride (Nss 1000ml) 250 mls @ 999 mls/hr IV .Q16M ONE Stop: 12/01/22 18:27 Last Admin: 12/01/22 20:04 Dose: 999 mls/hr Documented By: HOLA Lactated Ringer's (Lr) 1,000 mls @ 999 mls/hr IV .Q1H1M STA Stop: 12/01/22 20:09 Last Admin: 12/01/22 19:59 Dose: Not Given Documented By: HOLA Ioversol (Optiray 320 100ml) 93 ml IV ONCE ONE Stop: 12/01/22 17:41 Last Admin: 12/01/22 17:36 Dose: 93 ml Documented By: ANNIE Imaging Data Attestation: I personally reviewed and interpreted this imaging study as follows: My Impression: 1 view chest x-ray was obtained in the emergency department. My interpretation is no free air or definite infiltrate, final report below. Radiologist's Impression: Chest X-Ray 12/01/22 16:11 XR chest 1V portable CLINICAL HISTORY: Sepsis. COMPARISON STUDY: Chest CT September 13, 2017. Chest radiograph January 21, 2021. FINDINGS: Right internal jugular [id number] is in place. Lung volumes are normal. Lungs are clear. There is no pneumothorax or pleural effusion. Cardiac size is normal. Opacity at the right cardiophrenic angle is unchanged and likely reflects epicardial fat pad. There is no evidence for pulmonary edema. IMPRESSION: No acute cardiopulmonary findings. ACT 112: Negative or not required by law. Electronically signed by: Raul Armijo M.D. 12/01/2022 5:05 PM Abdomen/Pelvis CT 12/01/22 16:21 CT SCAN OF THE ABDOMEN AND PELVIS WITH IV CONTRAST CLINICAL HISTORY: Fever. COMPARISON STUDY: Abdominal CT dated 04/26/2018. TECHNIQUE: Following the IV administration of 93 cc of Optiray 320, CT scan of the abdomen and pelvis is performed from the lung bases to the proximal femora. Images are reviewed in the axial, sagittal, and coronal planes. IV contrast was administered without complication. A dose lowering technique was utilized adh ering to the principles of ALARA. CT DOSE: 1331.08 mGy.cm FINDINGS: Lung bases: The tip of a central venous infusion port terminates at the cavoatrial junction. The heart is normal in size and without pericardial effusion. The lung bases are clear noting bibasilar scarring/atelectasis. Liver: The contrast-enhanced liver is enlarged, measuring 23.8 cm in length. The liver demonstrates diffusely diminished attenuation indicating steatosis. There is no intrahepatic biliary ductal dilatation. The hepatic veins and portal veins are patent. Gallbladder: Not identified and presumed surgically absent. Spleen: Normal in size and attenuation. Pancreas: Unremarkable. Adrenal glands: A 2.4 cm right adrenal nodule is similar to previous. The left adrenal gland is normal in appearance. Kidneys: The contrast enhanced kidneys are normal in size and without hydronephrosis. The kidneys enhance symmetrically. Abdominal vasculature: The abdominal aorta is normal in course and caliber. Bowel: There is no bowel obstruction. Portions of the small bowel and colon are contained within a ventral hernia in the pelvis. Several bowel loops also protrude through diastases of the rectus musculature. The appendix is well-vis ualized and normal. Peritoneum: There is no intraperitoneal free air or abdominal ascites. There is laxity of the ventral abdominal wall with marked diastases of the rectus m usculature and protrusion of abdominal contents. A bowel containing ventral hernia is seen in the pelvis. Lymphadenopathy: None. Pelvic viscera: Evaluation of the pelvis is degraded by streak artifact from a right hip arthroplasty. The bladder is normal as visualized. Uterine fibroids are suspected. No adnexal lesion is seen. Skeletal structures: The skeletal structures are osteopenic. There is moderate lumbosacral spondylosis. No lytic or blastic lesions are seen. A right hip arthroplasty is in place. IMPRESSION: 1. No acute infectious or inflammatory findings are identified in the abdomen or pelvis. 2. Hepatomegaly and severe hepatic steatosis. 3. There is laxity of the ventral abdominal wall with marked diastases of the rectus musculature and protrusion of bowel contents. This has progressed from previous. 4. A large ventral hernia in the pelvis contains nonobstructed bowel loops. 5. Additional findings as above. ACT 112: Negative or not required by law. Electronically signed by: Josué Judd M.D. 12/01/2022 5:52 PM Discharge Plan Visit Data Chief Complaint: Referred by Doctor Stated Complaint: REF BY DOC,BLOOD WORK ED Provider: Jarrod Wadsworth Discharge Problem: Acute pyelonephritis, Neutropenic sepsis, Acute hypotension, Fever Patient Disposition: Admitted As Inpatient Discharge Instructions Interventions: ED Discharge Assessment Last Done: 12/01/22 20:13
[2022-12-01] MEDS ORDERED: SODIUM CHLORIDE 0.9% 1000ML 1,000 ML IV ONE (16:53)
[2022-12-01 16:54] LABS: Hematocrit (blood only) 29.6 % (37.0-47.0); Hemoglobin 9.4 g/dl (12.0-16.0); Mean Corpuscular Hemoglobin 32.3 pg (25.0-34.0); Mean Corpuscular Hgb Conc 31.8 g/dL (32.0-36.0); Mean Corpuscular Volume 101.7 fL (80.0-100.0); Mean Platelet Volume 9.2 fL (9.4-12.4); Platelet Count 162 K/uL (130-400); RDW Coefficient of Variation 18.3 % (11.5-14.5); RDW Standard Deviation 69.2 fL (36.4-46.3); Red Blood Count 2.91 M/uL (4.20-5.40); White Blood Count 0.12 K/ul (4.8-10.8)
[2022-12-01 16:56] LABS: Alanine Aminotransferase 11 U/L (7-52); Albumin Level 4.2 gm/dl (3.4-5.0); Alkaline Phosphatase 114 U/L (34-104); Anion Gap 13 (3-11); Aspartate Aminotransferase 11 U/L (13-39); BUN Creatinine Ratio 32.9 (10-20); Bilirubin Direct 0.2 mg/dl (0-0.2); Bilirubin,Total 0.6 mg/dl (0.2-1.0); Blood Urea Nitrogen 23 mg/dl (6-23); Calcium 10.1 mg/dl (8.6-10.3); Carbon Dioxide 20 mmol/L (21-32); Chloride 105 mmol/L (98-107); Est GFR (African American) 104.6 ml/min; Est GFR (Non-African American) 90.3 ml/min; Glucose 199 mg/dl (70-99(Fasting)); Magnesium 1.4 mg/dl (1.7-2.4); Potassium 3.9 mmol/L (3.5-5.1); Sodium 138 mmol/L (136-145); Total Protein 6.6 gm/dl (6.0-8.3)
[2022-12-01 17:03] LABS: Troponin I High Sensitivity 18.9 pg/ml (0-14)
--- NOTE | 2022-12-01 17:07 | XRay Report ---
XR chest 1V portable CLINICAL HISTORY: Sepsis. COMPARISON STUDY: Chest CT September 13, 2017. Chest radiograph January 21, 2021. FINDINGS: Right internal jugular [id number] is in place. Lung volumes are normal. Lungs are clear. There is no pneumothorax or pleural effusion. Cardiac size is normal. Opacity at the right cardiophr enic angle is unchanged and likely reflects epicardial fat pad. There is no evidence for pulmonary ed ramon. IMPRESSION: No acute cardiopulmonary findings. ACT 112: Negative or not required by law. Electronically signed by: Raul Armijo M.D. 12/01/2022 5:05 PM
[2022-12-01] MEDS ORDERED: MAGNESIUM SULFATE / D5W 1 GM/100 ML BAG IV STA (17:12)
[2022-12-01] MEDS ORDERED: OPTIRAY 320 100ml IV ONE (17:40)
--- NOTE | 2022-12-01 17:53 | CT Scan Report ---
CT SCAN OF THE ABDOMEN AND PELVIS WITH IV CONTRAST CLINICAL HISTORY: Fever. COMPARISON STUDY: Abdominal CT dated 04/26/2018. TECHNIQUE: Following the IV administration of 93 cc of Optiray 320, CT scan of the abdomen and pelvi s is performed from the lung bases to the proximal femora. Images are reviewed in the axial, sagittal , and coronal planes. IV contrast was administered without complication. A dose lowering technique wa s utilized adhering to the principles of ALARA. CT DOSE: 1331.08 mGy.cm FINDINGS: Lung bases: The tip of a central venous infusion port terminates at the cavoatrial junction. The hear t is normal in size and without pericardial effusion. The lung bases are clear noting bibasilar scarr ing/atelectasis. Liver: The contrast-enhanced liver is enlarged, measuring 23.8 cm in length. The liver demonstrates d iffusely diminished attenuation indicating steatosis. There is no intrahepatic biliary ductal dilatat ion. The hepatic veins and portal veins are patent. Gallbladder: Not identified and presumed surgically absent. Spleen: Normal in size and attenuation. Pancreas: Unremarkable. Adrenal glands: A 2.4 cm right adrenal nodule is similar to previous. The left adrenal gland is cara l in appearance. Kidneys: The contrast enhanced kidneys are normal in size and without hydronephrosis. The kidneys enh ance symmetrically. Abdominal vasculature: The abdominal aorta is normal in course and caliber. Bowel: There is no bowel obstruction. Portions of the small bowel and colon are contained within a ve ntral hernia in the pelvis. Several bowel loops also protrude through diastases of the rectus muscula ture. The appendix is well-visualized and normal. Peritoneum: There is no intraperitoneal free air or abdominal ascites. There is laxity of the ventral abdominal wall with marked diastases of the rectus musculature and protrusion of abdominal contents. A bowel containing ventral hernia is seen in the pelvis. Lymphadenopathy: None. Pelvic viscera: Evaluation of the pelvis is degraded by streak artifact from a right hip arthroplasty . The bladder is normal as visualized. Uterine fibroids are suspected. No adnexal lesion is seen. Skeletal structures: The skeletal structures are osteopenic. There is moderate lumbosacral spondylosi s. No lytic or blastic lesions are seen. A right hip arthroplasty is in place. IMPRESSION: 1. No acute infectious or inflammatory findings are identified in the abdomen or pelvis. 2. Hepatomegaly and severe hepatic steatosis. 3. There is laxity of the ventral abdominal wall with marked diastases of the rectus musculature and protrusion of bowel contents. This has progressed from previous. 4. A large ventral hernia in the pelvis contains nonobstructed bowel loops. 5. Additional findings as above. ACT 112: Negative or not required by law. Electronically signed by: Josué Judd M.D. 12/01/2022 5:52 PM
[2022-12-01 18:05] LABS: Adenovirus PCR Not Detected (NotDetected); Bordetella parapertussis PCR Not Detected (NotDetected); Bordetella pertussis PCR Not Detected (NotDetected); Chlamydia pneumoniae PCR Not Detected (NotDetected); Coronavirus 229E PCR Not Detected (NotDetected); Coronavirus CoV-2 (COVID19)PCR Not Detected (NotDetected); Coronavirus HKU1 PCR Not Detected (NotDetected); Coronavirus NL63 PCR Not Detected (NotDetected); Coronavirus OC43PCR Not Detected (NotDetected); Human Metapneumovirus PCR Not Detected (NotDetected); Influenza A PCR Not Detected (NotDetected); Influenza B PCR Not Detected (NotDetected); Mycoplasma pneumoniae PCR Not Detected (NotDetected); Parainfluenza Virus 1 PCR Not Detected (NotDetected); Parainfluenza Virus 2 PCR Not Detected (NotDetected); Parainfluenza Virus 3 PCR Not Detected (NotDetected); Parainfluenza Virus 4 PCR Not Detected (NotDetected); Respiratory Syncytial VirusPCR Not Detected (NotDetected); Rhinovirus/Enterovirus PCR Not Detected (NotDetected)
[2022-12-01 18:12] LABS: Appearance Urine Cloudy (Clear); Bacteria Urine Automated 2+ (Negative); Bilirubin Urine Negative (Negative); Blood Urine 1+ (Negative); Color Urine Dark Yellow; Glucose Urine UA Negative (Negative); Ketones Urine Negative (Negative); Leukocyte Esterase Urine 3+ (Negative); Nitrite Urine Positive (Negative); Protein Urine 1+ (Negative); Specific Gravity Urine 1.014 (1.000-1.030); Urobilinogen Urine Negative (Negative); WBC Urine Automated >30 /hpf (0-5)
[2022-12-01] MEDS ORDERED: SODIUM CHLORIDE 0.9% 500 ML IV ONE (18:12)
[2022-12-01] MEDS ORDERED: SODIUM CHLORIDE 0.9% 1000ML 250 ML IV ONE (18:12)
[2022-12-01] MEDS ORDERED: VANCOMYCIN CONSULT ACTIVE PRN (18:56)
[2022-12-01] MEDS ORDERED: VANCOMYCIN HCL 2,500 MG in SODIUM CHLORIDE 0.9% 500 ML IV STA (18:58)
--- NOTE | 2022-12-01 19:00 | History & Physical Report ---
Date of Service December 01, 2022 Assessment & Plan (1) Neutropenic sepsis: Plan: Empiric antibiotics with suspected urinary source - vancomycin + meropenem Neutropenic isolation precautions Discussed with Dr Feliz ([facility] oncology), pt had Neulasta therefore no need for Neupogen at this time. Lactate 5.6 -> 4.8, repeat prior to receiving last 750ml sepsis bolus, will repeat in 4 hours (2) Obstructive sleep apnea: Plan: CPAP [id number] (3) Diabetes mellitus type II, non insulin dependent: Plan: Hemoglobin A1C 8.7, hold all home meds Lantus 10 units BID Novolog: --Goal BSG Range: Low 110 mg/dL, High 140 mg/dL --Correction Factor: 30 mg/dL/unit --Carbohydrate ratio = 10 g/unit --BSGs ACHS if eating, q6h if npo Consult pharmacy for glycemic control (4) Large B-cell lymphoma: (5) HTN (hypertension): Plan: Hold olmesartan Plan VTE Prophylaxis - Lovenox 40 mg SQ BID Diet - T2DM Disposition - admit to PCU Admission and Anticipated Discharge Date Admission Date: December 01, 2022 History of Present Illness Chief Complaint: Dizziness, fever, urinary symptoms Primary Care Provider: Christine Winn Hanny Gamboa is a 67 year old female with large B cell lymphoma on HOP chemotherapy who presents to the ER with fever and urinary symptoms. She reports frequent UTIs following chemotherapy. On Wednesday or Wednesday last week prior to chemotherapy she was tested for a UTI and negative with symptoms of urinary pressure. It subsided and she underwent chemotherapy on returning for Neulasta on Wednesday. Feeling well until this after noon with temp 102.4 degrees Fahrenheit, associated rigors, generalized weakness and urinary pressure again. She called Dr Katz office and they recommend she comes ot the ER. She denies any dysuria, change in smell, color or urine or flank pain. Allergies Allergy/AdvReac Type Severity Reaction Status Date / Time lisinopril Allergy Mild Cough Verified 12/01/22 17:32 Home Medications Medication Instructions Recorded Confirmed Type glipizide 10 mg tablet 10 mg PO BID 04/26/18 12/01/22 History metformin 1,000 mg tablet 1,000 mg PO BID 04/26/18 12/01/22 History olmesartan 5 mg tablet 5 mg PO QAM 04/26/18 12/01/22 History pravastatin 10 mg tablet 10 mg PO QAM 07/28/20 12/01/22 History melatonin 5 mg tablet 5 mg PO HS 01/16/21 12/01/22 History metformin 500 mg tablet 500 mg PO HS 01/16/21 12/01/22 History sitagliptin phosphate 100 mg 100 mg PO QAM 01/16/21 12/01/22 History tablet (Januvia) bupropion HCl 300 mg 24 hr tablet, 300 mg PO DAILY 08/14/21 12/01/22 History extended release meloxicam 15 mg tablet 15 mg PO QAM #20 tabs 12/26/21 12/01/22 Rx amoxicillin 500 mg tablet 2,000 mg PO ONCE PRN prophylaxis 03/10/22 12/01/22 Rx #4 tabs R-Chop Chemo 1 dose IV MO 12/01/22 12/01/22 History acetaminophen 650 mg 1,300 mg PO Q12H PRN Pain 12/01/22 12/01/22 History tablet,extended release ondansetron HCl 8 mg tablet 8 mg PO Q8 PRN Nausea 12/01/22 12/01/22 History prednisone 50 mg tablet 100 mg PO DIRECTED 12/01/22 12/01/22 History Past Med/Surg History Medical History (Updated 12/01/22 @ 21:35 by Jarrod Wadsworth DO) Abdominal hernia Current Anxiety Diabetes mellitus, type 2 NIDDM History of diverticulitis ~5 years ago History of intestinal obstruction 2018 s/p colon resection HTN (hypertension) Hyperlipidemia Morbid obesity Obstructive sleep apnea CPAP (compliant) Osteoarthritis Restless leg syndrome HX Surgical History History of arthroscopy Right knee History of breast biopsy Benign History of cataract surgery R/L History of cholecystectomy History of colon resection History of colonoscopy History of herniorrhaphy Abdominal History of total knee replacement R/L [place] teeth removed Family History Mother Family history of diabetes mellitus Father Family history of diabetes mellitus Other Breast cancer Family history of high blood pressure No family history of adverse response to anesthesia Obstructive sleep apnea Stroke Social History (Reviewed 07/18/23 @ 16:22 by PREETI Barksdale Smoking Status: Never smoker Second Hand Exposure: No; Do You Dip or Chew Tobacco: No; Tobacco Cessation Education Requested by Patient: No Hx Alcohol Use: No Hx Substance Use: No Preferred Language: [place] Communication Ability: Effective Customer Resource Specialist Required: No Beliefs That Will Affect Care: None marital status: Current Living Situation: Spouse How many Children do You have: 1 Other Information That Helps Us Care for You: No Feels Safe at Home: Yes Safety Concerns: Feels Safe At This Time Assistive Devices: Cane Review of Systems Review of Systems: All systems reviewed & are unremarkable except as noted in HPI & below Physical Exam Constitutional: WD/WN, vitals as above + obese Eyes: PERRL, conjunctivae normal, anicteric sclerae ENMT: external ear and nose normal, oropharynx normal Respiratory: normal respiratory effort, lungs clear to auscultation Cardiovascular: Rate/Rhythm: regular rhythm and + tachycardic Heart Sounds: no murmur Extremities: normal capillary refill and + pedal edema (trace pitting b/l equal); no calf tenderness Gastrointestinal (Abdomen): normal bowel sounds, soft, nontender, no hepatosplenomegaly Musculoskeletal: no cyanosis or clubbing, extremities motor strength 5/5 Skin: no rashes, warm and dry Neurologic: moves all extremities and awake; no focal motor deficits and not confused Speech / Cognition: normal speech Psychiatric: A+Ox3, euthymic affect Genitourinary: no CVA tenderness Results & Data Results & Data Vital Signs (Past 12 Hours) Vital Signs Temp Pulse Pulse Resp BP BP Pulse Ox 12/01/22 17:52 97 12/01/22 16:25 123 H 16 108/68 97 12/01/22 16:32 128 H 12/01/22 16:07 37.5 C 136 H 22 82/49 L 97 O2 Del Method 12/01/22 17:52 Room Air 12/01/22 16:25 Room Air 12/01/22 16:32 12/01/22 16:07 Room Air Laboratory Results Abnormal lab results 12/01/22 12/01/22 12/01/22 Range/Units 16:11 16:11 16:11 WBC 0.12 L* (4.8-10.8) K/ul RBC 2.91 L (4.20-5.40) M/uL Hgb 9.4 L (12.0-16.0) g/dl Hct 29.6 L (37.0-47.0) % MCV 101.7 H (80.0-100.0) fL MCHC 31.8 L (32.0-36.0) g/dL RDW Std Deviation 69.2 H (36.4-46.3) fL RDW Coeff of Madelyn 18.3 H (11.5-14.5) % MPV 9.2 L (9.4-12.4) fL Carbon Dioxide 20 L (21-32) mmol/L Anion Gap 13 H (3-11) BUN/Creatinine Ratio 32.9 H (10-20) Glucose 199 H (70-99(Fasting)) mg/dl Lactate 5.6 H* (0.4-2.0) mmol/L Magnesium 1.4 L (1.7-2.4) mg/dl AST 11 L (13-39) U/L Alkaline Phosphatase 114 H (34-104) U/L Troponin I High Sens 18.9 H (0-14) pg/ml Procalcitonin (0-0.5) ng/ml Urine Appearance (Clear) Urine Protein (Negative) Urine Blood (Negative) Urine Nitrite (Negative) Ur Leukocyte Esterase (Negative) Urine WBC (Auto) (0-5) /hpf Urine RBC (Auto) (0-4) /hpf U Hyaline Cast (Auto) (0-5) /lpf U Epithel Cells (Auto) (0-5) /lpf Urine Bacteria (Auto) (Negative) 12/01/22 12/01/22 12/01/22 Range/Units 16:11 18:08 Unknown WBC (4.8-10.8) K/ul RBC (4.20-5.40) M/uL Hgb (12.0-16.0) g/dl Hct (37.0-47.0) % MCV (80.0-100.0) fL MCHC (32.0-36.0) g/dL RDW Std Deviation (36.4-46.3) fL RDW Coeff of Madelyn (11.5-14.5) % MPV (9.4-12.4) fL Carbon Dioxide (21-32) mmol/L Anion Gap (3-11) BUN/Creatinine Ratio (10-20) Glucose (70-99(Fasting)) mg/dl Lactate 4.8 H* (0.4-2.0) mmol/L Magnesium (1.7-2.4) mg/dl AST (13-39) U/L Alkaline Phosphatase (34-104) U/L Troponin I High Sens (0-14) pg/ml Procalcitonin 1.41 H (0-0.5) ng/ml Urine Appearance Cloudy A (Clear) Urine Protein 1+ H (Negative) Urine Blood 1+ H (Negative) Urine Nitrite Positive A (Negative) Ur Leukocyte Esterase 3+ H (Negative) Urine WBC (Auto) >30 H (0-5) /hpf Urine RBC (Auto) 5-10 H (0-4) /hpf U Hyaline Cast (Auto) 10-30 H (0-5) /lpf U Epithel Cells (Auto) 5-10 H (0-5) /lpf Urine Bacteria (Auto) 2+ H (Negative) Diagnostic Findings XR chest 1V portable CLINICAL HISTORY: Sepsis. COMPARISON STUDY: Chest CT September 13, 2017. Chest radiograph January 21, 2021. FINDINGS: Right internal jugular [id number] is in place. Lung volumes are normal. Lungs are clear. There is no pneumothorax or pleural effusion. Cardiac s ize is normal. Opacity at the right cardiophrenic angle is unchanged and likely reflects epicardial fat pad. There is no evidence for pulmonary edema. IMPRESSION: No acute cardiopulmonary findings. CT SCAN OF THE ABDOMEN AND PELVIS WITH IV CONTRAST CLINICAL HISTORY: Fever. COMPARISON STUDY: Abdominal CT dated 04/26/2018. TECHNIQUE: Following the IV administration of 93 cc of Optiray 320, CT scan of the abdomen and pelvis is performed from the lung bases to the proximal femora. Images are reviewed in the axial, sagittal, and coronal planes. IV contrast was administered without complication. A dose lowering technique was utilized adhering to the principles of ALARA. CT DOSE: 1331.08 mGy.cm FINDINGS: Lung bases: The tip of a central venous infusion port terminates at the cavoatrial junction. The heart is normal in size and without pericardial effusion. The lung bases are clear noting bibasilar scarring/atelectasis. Liver: The contrast-enhanced liver is enlarged, measuring 23.8 cm in length. The liver demonstrates diffusely diminished attenuation indicating steatosis. There is no intrahepatic biliary ductal dilatation. The hepatic veins and portal veins are patent. Gallbladder: Not identified and presumed surgically absent. Spleen: Normal in size and attenuation. Pancreas: Unremarkable. Adrenal glands: A 2.4 cm right adrenal nodule is similar to previous. The left adrenal gland is normal in appearance. Kidneys: The contrast enhanced kidneys are normal in size and without hydronephrosis. The kidneys enhance symmetrically. Abdominal vasculature: The abdominal aorta is normal in course and caliber. Bowel: There is no bowel obstruction. Portions of the small bowel and colon are contained within a ventral hernia in the pelvis. Several bowel loops also protrude through diastases of the rectus musculature. The appendix is well- visualized and normal. Peritoneum: There is no intraperitoneal free air or abdominal ascites. There is laxity of the ventral abdominal wall with marked diastases of the rectus musculature and protrusion of abdominal contents. A bowel containing ventral hernia is seen in the pelvis. Lymphadenopathy: None. Pelvic viscera: Evaluation of the pelvis is degraded by streak artifact from a right hip arthroplasty. The bladder is normal as visualized. Uterine fibroids are suspected. No adnexal lesion is seen. Skeletal structures: The skeletal structures are osteopenic. There is moderate lumbosacral spondylosis. No lytic or blastic lesions are seen. A right hip arthroplasty is in place. IMPRESSION: 1. No acute infectious or inflammatory findings are identified in the abdomen or pelvis. 2. Hepatomegaly and severe hepatic steatosis. 3. There is laxity of the ventral abdominal wall with marked diastases of the rectus musculature and protrusion of bowel contents. This has progressed from previous. 4. A large ventral hernia in the pelvis contains nonobstructed bowel loops. 5. Additional findings as above. Medications Administered ER Medications Given: Cefepime 2000mg IV NSS 1L bolus Mg sulfate 1g IV NSS 500ml bolus NSS 250ml bolus ECG Rate (beats per minute): 125 Rhythm: sinus tachycardia Findings: + nonspecific-ST abn Comparison ECG Date: from (January 21, 2021) Change: no significant change Code Status & VTE Plan Code Status Full VTE Prophylaxis Plan VTE Prophylaxis will be ordered: Yes PG Care Time/CCT Total # of Minutes Spent Total Time Spent with Patient: Total time spent is greater than 50% in coordination of care (as documented) at patient's floor/unit and/or counseling patient: Coding Level of Care Code 97500 INT INP/OBS CARE MIN Diagnoses Neutropenic sepsis A41.9; D70.9 Obstructive sleep apnea G47.33 Diabetes mellitus type II, non insulin dependent E11.9 Large B-cell lymphoma C85.10 HTN (hypertension) I10
[2022-12-01 19:01] LABS: INR 1.1 (0.9-1.1); Partial Thromboplastin Ratio 0.8; Partial Thromboplastin Time 21.8 Seconds (21.0-31.0); Prothrombin Time 11.6 Seconds (9.0-12.0)
[2022-12-01] MEDS ORDERED: LACTATED RINGER'S 1,000 ML IV STA (19:09)
[2022-12-01] MEDS ORDERED: FILGRASTIM 480 MCG/1.6 ML VIAL SC STA (19:32)
[2022-12-01] MEDS ORDERED: DEXTROSE 50% 50 ML SYRINGE IV PRN (21:04)
[2022-12-01] MEDS ORDERED: GLUCOSE 40% GEL 15 GM TUBE PO PRN (21:04)
[2022-12-01] MEDS ORDERED: PHARMACY GLYCEMIC MGMT CONSULT PRN (21:04)
[2022-12-01] MEDS ORDERED: GLUCAGON FOR INJ 1 MG VIAL SQ PRN (21:04)
[2022-12-01] MEDS ORDERED: GLUCOSE 10 TAB/TUBE PO PRN (21:04)
[2022-12-01] MEDS ORDERED: CARBOHYDRATES FOR HYPOGLYCEMIA PO PRN (21:04)
[2022-12-01] MEDS ORDERED: LANTUS PER UNIT CHARGE SQ ONE (21:30)
[2022-12-01] MEDS: MAGNESIUM SULFATE / D5W 1 GM/100 ML BAG IV SCH ×2 (21:32→23:32)
[2022-12-01] MEDS: ENOXAPARIN INJ 40 MG/0.4 ML SYR SQ SCH (21:33)
[2022-12-01] MEDS: MEROPENEM 500 MG in SYRINGE 0 ML IV SCH (21:36)
[2022-12-01] MEDS: INSULIN ASPART PER UNIT CHARGE SC SCH (21:40)
[2022-12-01] MEDS: MELATONIN 3 MG TAB PO PRN (22:40)
[2022-12-01 23:19] LABS: BUN Creatinine Ratio 29.3 (10-20); Calcium 8.8 mg/dl (8.6-10.3); Creatinine Clr Calc Pharmacy 101.8 ml/min; Est GFR (African American) 96.3 ml/min; Est GFR (Non-African American) 83.1 ml/min; Potassium 3.5 mmol/L (3.5-5.1)
[2022-12-02] MEDS ORDERED: INSULIN ASPART PER UNIT CHARGE SC SCH (02:00)
[2022-12-02] MEDS: MEROPENEM 500 MG in SYRINGE 0 ML IV SCH (05:57)
[2022-12-02] MEDS: HEPARIN 100 UNIT/ML 5ML FLUSH FLUSH PRN ×2 (05:57→20:19)
[2022-12-02] MEDS: VANCOMYCIN HCL 1,250 MG in SODIUM CHLORIDE 0.9% 250 ML IV SCH ×2 (06:03→16:55)
[2022-12-02 06:22] LABS: Albumin Globulin Ratio 1.5 (0.9-2); Albumin Level 3.2 gm/dl (3.4-5.0); BUN Creatinine Ratio 33.3 (10-20); Bilirubin,Total 0.4 mg/dl (0.2-1.0); Calcium 8.7 mg/dl (8.6-10.3); Creatinine Clr Calc Pharmacy 149.6 ml/min; Est GFR (African American) 116.1 ml/min; Est GFR (Non-African American) 100.2 ml/min; Globulin 2.1 gm/dl (2.5-4.0); Potassium 3.3 mmol/L (3.5-5.1); Total Protein 5.3 gm/dl (6.0-8.3)
[2022-12-02 07:21] LABS: Hematocrit (blood only) 21.2 % (37.0-47.0); Mean Corpuscular Hemoglobin 32.9 pg (25.0-34.0); Mean Corpuscular Volume 99.5 fL (80.0-100.0); Mean Platelet Volume 10.2 fL (9.4-12.4); Platelet Count 119 K/uL (130-400); RDW Coefficient of Variation 18.4 % (11.5-14.5); Red Blood Count 2.13 M/uL (4.20-5.40); White Blood Count 0.76 K/ul (4.8-10.8)
[2022-12-02 07:22] LABS: Anisocytosis Present; Polychromasia 1+; Tear Drop Cells 1+
[2022-12-02 07:24] LABS: Basophils # (auto) 0.02 K/uL (0-0.2); Basophils % (auto) 2.6 %; Eosinophils # (auto) 0.01 K/uL (0-0.50); Eosinophils % (auto) 1.3 %; Immature Granulocytes # (auto) 0.07 K/uL (0.01-0.20); Immature Granulocytes % (auto) 9.2 %; Lymphocytes # (auto) 0.09 K/uL (1.2-3.4); Lymphocytes % (auto) 11.8 %; Monocytes # (auto) 0.02 K/uL (0.11-0.59); Monocytes % (auto) 2.6 %; Neutrophils # (auto) 0.55 K/uL (1.40-6.50); Neutrophils % (auto) 72.5 %
--- NOTE | 2022-12-02 07:49 | Pharmacy Report ---
Pharmacy PK ABX Note - Date of Service December 02, 2022 - Assessment and Plan Assessment 67 year old F receiving IV Vancomycin + Meropenem for treatment of neutropenic fever. Suspected urinary source. PMH large B cell lymphoma on RCHOP chemotherapy, s/p Neulasta on Wednesday. Blood and Urine cultures pending. Day # 2 of antimicrobial therapy. Plan Vancomycin * Loading dose: 2500 mg IV x 1 given last night at 1900 * Maintenance dose: 1250 mg IV every 12 hours * Regimen is predicted to achieve target AUC/RONDA of 400-600 mg/L.hr * Pharmacy has transitioned to AUC monitoring for vancomycin. AUC/RONDA is the preferred PK/PD target and is associated with decreased risk of nephrotoxicity compared to traditional trough targets. * Trough level ordered prior to 0600 dose on 12/03. Meropenem 500mg IV Q8H -> increase dose to 500mg IV Q6H for neutropenic fever and complicated UTI, CrCl > 50ml/min Pharmacy will continue to follow and will adjust dose/frequency as necessary. Thank you.
[2022-12-02] MEDS: ENOXAPARIN INJ 40 MG/0.4 ML SYR SQ SCH ×2 (07:51→20:37)
[2022-12-02] MEDS: buPROPion XL 300 MG TABCR PO SCH (07:51)
[2022-12-02] MEDS: PRAVASTATIN SOD 10 MG TAB PO SCH (07:51)
[2022-12-02] MEDS: INSULIN ASPART PER UNIT CHARGE SC SCH ×4 (07:53→20:39)
[2022-12-02 08:11] LABS: Estimated Average Glucose 126 mg/dl
[2022-12-02 08:21] LABS: A calco-baum cmplx NotReported Not Detected (NotDetected); Bact fragilis Not Reported Not Detected (NotDetected); C auris Not Reported Not Detected (NotDetected); CTX-M Resistant Gene Not Detected (NotDetected); Calbicans Not Reported Not Detected (NotDetected); Candida glabrata Not Reported Not Detected (NotDetected); Candida krusei Not Reported Not Detected (NotDetected); Cneoformans/gatti Not Reported Not Detected (NotDetected); Cparapsilosis Not Reported Not Detected (NotDetected); Ctropicalis Not Reported Not Detected (NotDetected); E cloacae compx Not Reported Not Detected (NotDetected); Efaecalis Not Reported Not Detected (NotDetected); Efaecium Not Reported Not Detected (NotDetected); Enterobacterales Not Reported DETECTED (NotDetected); Escherichia coli Not Reported DETECTED (NotDetected); H influenzae Not Reported Not Detected (NotDetected); IMP Resistant Gene Not Detected (NotDetected); K aerogenes Not Reported Not Detected (NotDetected); KPC Resistant Gene Not Detected (NotDetected); Koxytoca Not Reported Not Detected (NotDetected); Kpneumoniae grp Not Reported Not Detected (NotDetected); Lmonocyt Not Reported Not Detected (NotDetected); N meningitidis Not Reported Not Detected (NotDetected); NDM Resistant Gene Not Detected (NotDetected); OXA 48 Like Resistant Gene Not Detected (NotDetected); P aeruginosa Not Reported Not Detected (NotDetected); Proteus spp Not Reported Not Detected (NotDetected); Salmonella spp Not Reported Not Detected (NotDetected); Smarcescens Not Reported Not Detected (NotDetected); Staph lugdunensis Not Reported Not Detected (NotDetected); Staph spp. Not Reported Not Detected (NotDetected); Staphaureus Not Reported Not Detected (NotDetected); Staphepi Not Reported Not Detected (NotDetected); Stenmaltophilia Not Reported Not Detected (NotDetected); Strep agal(GrpB) Not Reported Not Detected (NotDetected); Strep pneum Not Reported Not Detected (NotDetected); Strep pyog (GrpA) Not Reported Not Detected (NotDetected); Strep spp Not Reported Not Detected (NotDetected); VIM Resistant Gene Not Detected (NotDetected); mcr-1 Colistin Resistant Gene Not Detected (NotDetected)
[2022-12-02 08:26] LABS: Enterobacterales DETECTED (NotDetected)
--- NOTE | 2022-12-02 09:35 | Pharmacy Report ---
Pharmacy Glycemic Short Note 2 - Date of Service December 02, 2022 - Glycemic Short BSG Results (Last 24 hours): 12/01/22 12/01/22 12/01/22 16:11 21:02 22:48 Glucose 199 H 239 H POC Glucose 250 H 12/02/22 12/02/22 12/02/22 02:17 05:38 07:22 Glucose 111 H POC Glucose 237 H 98 OUTPATIENT ANTIDIABETIC REGIMEN: * Glipizide 10mg PO BID * Metformin 1000mg PO BID * Januvia 100mg PO Daily ASSESSMENT: * 67 year old female, admitted with neutropenic fever, on IV antibiotics, type 2 DM, on orals as above. * Patient received 18 units of insulin yesterday, 10 units basal, Blood sugar at goal at 111mg/dl this AM. * Patient refused carb coverage for breakfast this morning. * Continue insulin SQ regimen at this time, loosen CF/CR slightly, may have hyperglycemia d/t patient refusing doses. PLAN FOR INPATIENT GLYCEMIC CONTROL: * Hold outpatient oral diabetes medications * Basal insulin * Lantus 10 units SQ HS * Bolus insulin * NovoLog per scale ACHS or Q6hrs while NPO * Goal Range: Low 110 mg/dL - High 140 mg/dL * Correction Factor: 25 mg/dL/unit * Nutritional / Prandial insulin per carb ratio of 1 unit per 8 grams CHO consumed
[2022-12-02] MEDS ORDERED: MEROPENEM 500 MG in SYRINGE 0 ML IV SCH (12:00)
[2022-12-02] MEDS: CEFEPIME 2,000 MG in SYRINGE 0 ML IV SCH ×2 (12:05→20:19)
[2022-12-02] MEDS ORDERED: POTASSIUM CHLORIDE CRTAB 20 MEQ TABCR PO STA (13:52)
[2022-12-02] MEDS ORDERED: ACETAMINOPHEN 325 MG TAB PO PRN (13:52)
--- NOTE | 2022-12-02 14:45 | Electrocardiogram Report ---
Test Reason : Blood Pressure : / mmHG Vent. Rate : 125 BPM Atrial Rate : 125 BPM P-R Int : 120 ms QRS Dur : 080 ms QT Int : 312 ms P-R-T Axes : 062 049 068 degrees QTc Int : 450 ms Sinus tachycardia Nonspecific ST and T wave abnormality Abnormal ECG When compared with ECG of 21-JAN-2021 13:19, Vent. rate has increased BY 62 BPM Confirmed by Jarrod Humphrey ([id number]) on 12/02/2022 2:45:03 PM Referred By: Ayaka Kaur Confirmed By:Jarrod Humphrey
[2022-12-02 19:23] LABS: Hematocrit (blood only) 21.3 % (37.0-47.0); Hemoglobin 7.1 g/dl (12.0-16.0)
[2022-12-02] MEDS: LANTUS PER UNIT CHARGE SQ SCH (20:39)
--- NOTE | 2022-12-02 22:52 | Hospitalist Progress Note ---
Date of Service December 02, 2022 Assessment & Plan (1) Neutropenic sepsis: Plan: Empiric antibiotics with suspected urinary source - vancomycin + meropenem Neutropenic isolation precautions Discussed with Dr Feliz ([facility] oncology), pt had Neulasta therefore no need for Neupogen at this time. Lactate 5.6 -> 4.8 clinically showing improvement. will consult ID to assess if port needs to be removed/exchanged. WBC is slowly improving, Patient with anemia, will obtain consent for blood transfusion (2) Obstructive sleep apnea: Plan: CPAP [id number] (3) Diabetes mellitus type II, non insulin dependent: Plan: Hemoglobin A1C 8.7, hold all home meds Lantus 10 units BID Novolog: --Goal BSG Range: Low 110 mg/dL, High 140 mg/dL --Correction Factor: 30 mg/dL/unit --Carbohydrate ratio = 10 g/unit --BSGs ACHS if eating, q6h if npo Consult pharmacy for glycemic control (4) Large B-cell lymphoma: (5) HTN (hypertension): Plan: Hold olmesartan Plan VTE Prophylaxis - Lovenox 40 mg SQ BID Diet - T2DM Disposition - admit to PCU Admission and Anticipated Discharge Date Admission Date: December 01, 2022 Subjective Patient reports feeling much better today. Patient reports less generalized malaise. Patient's family at bedside, obtained consent for blood tranfusion. Review of Systems Review of Systems: All systems reviewed & are unremarkable except as noted in HPI & below Physical Exam Constitutional: WD/WN, vitals as above + obese Eyes: PERRL, conjunctivae normal, anicteric sclerae ENMT: external ear and nose normal, oropharynx normal Respiratory: normal respiratory effort, lungs clear to auscultation Cardiovascular: Rate/Rhythm: regular rate and regular rhythm Heart Sounds: no murmur Extremities: normal capillary refill and + pedal edema (trace pitting b/l equal); no calf tenderness Gastrointestinal (Abdomen): normal bowel sounds, soft, nontender, no hepatosplenomegaly Musculoskeletal: no cyanosis or clubbing, extremities motor strength 5/5 Skin: no rashes, warm and dry Neurologic: moves all extremities and awake; no focal motor deficits and not confused Speech / Cognition: normal speech Psychiatric: A+Ox3, euthymic affect Genitourinary: no CVA tenderness Results & Data Results & Data Vital Signs (Past 12 Hours) Vital Signs Temp Pulse Resp BP Pulse Ox O2 Del Method 12/02/22 19:40 36.9 C 96 H 18 109/53 L 99 Room Air 12/02/22 15:56 37.1 C 86 18 93/70 L 95 Room Air 12/02/22 11:22 37.1 C 78 18 132/69 97 Room Air PG Care Time/CCT Total # of Minutes Spent Total Time Spent with Patient: Total time spent is greater than 50% in coordination of care (as documented) at patient's floor/unit and/or counseling patient: Coding Level of Care Code 46511 SUB INP/OBS CARE 2/35MIN Diagnoses Neutropenic sepsis A41.9; D70.9 Obstructive sleep apnea G47.33 Diabetes mellitus type II, non insulin dependent E11.9 Large B-cell lymphoma C85.10 HTN (hypertension) I10
[2022-12-02] MEDS: MELATONIN 3 MG TAB PO PRN (22:54)
[2022-12-02] MEDS: ESCITALOPRAM OXALATE 20 MG TAB PO SCH (22:54)
[2022-12-03] MEDS ORDERED: VANCOMYCIN LEVEL ONE (05:30)
[2022-12-03] MEDS: CEFEPIME 2,000 MG in SYRINGE 0 ML IV SCH (05:40)
[2022-12-03] MEDS: VANCOMYCIN HCL 1,250 MG in SODIUM CHLORIDE 0.9% 250 ML IV SCH (05:44)
[2022-12-03 06:28] LABS: BUN Creatinine Ratio 20.9 (10-20); Calcium 8.9 mg/dl (8.6-10.3); Creatinine Clr Calc Pharmacy 177.4 ml/min; Est GFR (African American) 122.8 ml/min; Potassium 3.1 mmol/L (3.5-5.1)
[2022-12-03 06:40] LABS: Hematocrit (blood only) 21.3 % (37.0-47.0); Mean Corpuscular Hemoglobin 32.6 pg (25.0-34.0); Mean Corpuscular Hgb Conc 32.9 g/dL (32.0-36.0); Mean Corpuscular Volume 99.1 fL (80.0-100.0); Mean Platelet Volume 10.6 fL (9.4-12.4); Platelet Count 110 K/uL (130-400); RDW Coefficient of Variation 17.9 % (11.5-14.5); RDW Standard Deviation 65.1 fL (36.4-46.3); Red Blood Count 2.15 M/uL (4.20-5.40); White Blood Count 0.27 K/ul (4.8-10.8)
[2022-12-03] MEDS: HEPARIN 100 UNIT/ML 5ML FLUSH FLUSH PRN (07:14)
[2022-12-03] MEDS: INSULIN ASPART PER UNIT CHARGE SC SCH ×4 (07:46→21:11)
--- NOTE | 2022-12-03 07:59 | Pharmacy Report ---
Pharmacy PK ABX Note - Date of Service December 03, 2022 - Assessment and Plan Assessment 67 year old F receiving IV Vancomycin + Cefepime for treatment of neutropenic fever, Ecoli growing in 1 blood culture. Suspected urinary source. PMH large B cell lymphoma on RCHOP chemotherapy, s/p Neulasta on Wednesday. Repeat Blood cultures and Urine cultures pending. Day # 3 of antimicrobial therapy. ID Consulted to determine if port needs to be removed/exchanged. Plan Vancomycin * Current regimen: 1250 mg IV every 12 hours * Trough level obtained 12/03/22 resulted as 8.7 mcg/mL, predicted AUC/RONDA subtherapeutic at 369mg/L.hr * Change to 1500 mg IV every 12 hours, this is predicted to achieve target AUC/RONDA of 400-600 mg/L.hr * Repeat level in 1-2 days Cefepime 2g IV Q8H Pharmacy will continue to follow and will adjust dose/frequency as necessary. Thank you.
--- NOTE | 2022-12-03 08:34 | Hospitalist Progress Note ---
Date of Service December 03, 2022 Assessment & Plan (1) Neutropenic sepsis: Plan: Gram negative bacteremia and sepsis, suspected urinary source vs gut translocation - infectious disease feels we can use ceftriaxone at this time de-escalation Neutropenic isolation precautions previous attending Discussed with Dr Feliz ([facility] oncology), treated for B cell lymphoma pt had Neulasta therefore no need for Neupogen at this time. Lactate 5.6 -> 4.8 clinically showing improvement. infectious disease cons no need to remove port at this time Patient with pancytopenia secondary to chemotherapy anemia, will obtain consent for blood transfusion 2 units packed red blood cells given (2) Obstructive sleep apnea: Plan: chronic and stable CPAP [id number] (3) Diabetes mellitus type II, non insulin dependent: Plan: Hemoglobin A1C 8.7, hold all home meds- basal bolus Lantus 10 units BID Novolog: --Goal BSG Range: Low 110 mg/dL, High 140 mg/dL --Correction Factor: 30 mg/dL/unit --Carbohydrate ratio = 10 g/unit --BSGs ACHS if eating, q6h if npo Consult pharmacy for glycemic control (4) HTN (hypertension): Plan: typically chronic stable htn, blood pressures rebounded restart olmesartan on 12/04 Plan VTE Prophylaxis - Lovenox 40 mg SQ BID Admission and Anticipated Discharge Date Admission Date: December 01, 2022 Subjective patient is extremely fatigued no focal signs or symptoms or complaints discussed blood transfusion is agreeable we will transfuse 2 units packed red blood cells irradiated due to her lymphoma Physical Exam Physical Exam: patient awake alert appropriate she has no focal signs or symptoms no evidence of oral thrush or skin lesions her cardiac exam is regular lungs are clear abdomen NABS soft Results & Data Results & Data Vital Signs (Past 12 Hours) Vital Signs Temp Pulse Pulse Resp BP Pulse Ox O2 Del Method 12/03/22 07:00 91 H 12/03/22 07:18 98.1 F 79 18 118/69 97 CPAP 12/03/22 02:34 97.9 F 86 18 100/49 L 97 BiPAP 12/03/22 00:00 102 H 12/02/22 23:29 97.9 F 95 H 18 108/60 96 BiPAP Laboratory Results reviewed CBC reviewed chemistry replete potassium PG Care Time/CCT Total # of Minutes Spent Total Time Spent with Patient: Total time spent is greater than 50% in coordination of care (as documented) at patient's floor/unit and/or counseling patient: Coding Level of Care Code 89132 SUB INP/OBS CARE 350MIN Diagnoses Neutropenic sepsis A41.9; D70.9 Obstructive sleep apnea G47.33 Diabetes mellitus type II, non insulin dependent E11.9 HTN (hypertension) I10
[2022-12-03] MEDS: buPROPion XL 300 MG TABCR PO SCH (09:10)
[2022-12-03] MEDS: ENOXAPARIN INJ 40 MG/0.4 ML SYR SQ SCH ×2 (09:10→21:06)
--- NOTE | 2022-12-03 09:10 | Infectious Disease Consult ---
Date of Consultation December 03, 2022 Assessment & Plan (1) Neutropenic sepsis: (2) E coli bacteremia: Plan Micro: 12/03 BCx x2: pending 12/01 UA >30 WBCs. UCx pin-point growth, reincubating 12/01 BCx x2: GNRs in 1/4 bottles. 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 Pt reports frequent UTIs following chemotherapy. Last week prior to chemotherapy, she had symptoms of urinary pressure and was tested for a UTI and was negative. This subsided, and she underwent chemotherapy on 11/26, and returned on 11/27 for Neulasta. She felt well, until the day of presentation when she had fever to 102.4, rigors, generalized weakness, and urinary pressure again. She denied dysuria, flank pain. On presentation, T 37.5, BP 82/49, WBC 0.12, lactate 5.6, procal 1.41. UA >30 WBCs, UCx pending. BCx grew E coli; no resistance detected on Biofire. CXR without acute findings. CT A/P with contrast showed no acute infectious or inflammatory findings in the abdomen or pelvis. Pt was started on vanc, meropenem, which was de-escalated to vanc, cefepime. Today, pt is feeling improved. Reports improvement in her urinary symptoms. Unclear source of pt's E coli bacteremia--could consider urinary source given her urinary symptoms (although CT A/P without findings in urinary tract). Also consider translocation from GI tract in the setting of her neutropenia, as pt has intermittent diarrhea. Has history of bilateral TKA without knee pain/erythema. Pt has a port, but no surrounding erythema. The E coli grew in only 1/4 bottles in the admission blood culture, with repeat blood culture pending. Recommendations: -Discontinued vancomycin -De-escalated cefepime to ceftriaxone 2 g IV daily. Will likely plan for 14 days of antibiotic therapy through the port. -Follow-up repeat blood cultures from 12/03 -If pt is clinically improved and no further bacteremia, will be able to retain the port. Will continue to follow. Please page [facility] with further questions. Consultation Information Consultation was provided via telemedicine using two-way real-time interactive telecommunication between the patient and the telemedicine provider. For the duration of the visit, the provider was performing the assessment from a different facility than the patient. This includesuse of bluetooth stethoscope forauscultationperformed by the telepresenter that the telemedicine provider can hear if described in the physical exam. Social Media Assistant contact information: Please call [facility] . 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 Pt reports frequent UTIs following chemotherapy, typically with symptoms of pressure in area of urethra when she urinates and after she finishes the urine stream, no dysuria or incontinence. Last week prior to chemotherapy, she had these symptoms and was tested for a UTI and was negative. This subsided, and she underwent chemotherapy on 11/26, and returned on 11/27 for Neulasta. She felt well, until the day of presentation when she had fever to 102.4, rigors, generalized weakness, and urinary pressure again. She denied dysuria, flank pain. On presentation, T 37.5, BP 82/49. Labs showed WBC 0.12, lactate 5.6, procal 1.41. UA >30 WBCs. BCx collected. CXR without acute findings. CT A/P with contrast showed no acute infectious or inflammatory findings in the abdomen or pelvis. Pt was started on vanc, meropenem, which was de-escalated to vanc, cefepime. BCx grew E coli; no resistance detected on Biofire. On my evaluation, pt reports she is feeling improved. Her urinary symptoms are better today, and the pressure is decreased. She states that she has had diarrhea on/off since starting chemotherapy, but her recent diarrhea was not as bad as previously. She denies abd pain, cough, shortness of breath, rash, wound. Her port was placed in August. She has history of bilateral TKA, but no knee pain. Allergies Allergy/AdvReac Type Severity Reaction Status Date / Time lisinopril Allergy Mild Cough Verified 12/01/22 17:32 Home Medications Medication Instructions Recorded Confirmed Type glipizide 10 mg tablet 10 mg PO BID 04/26/18 12/01/22 History metformin 1,000 mg tablet 1,000 mg PO BID 04/26/18 12/01/22 History olmesartan 5 mg tablet 5 mg PO QAM 04/26/18 12/01/22 History pravastatin 10 mg tablet 10 mg PO QAM 07/28/20 12/01/22 History melatonin 5 mg tablet 5 mg PO HS 01/16/21 12/01/22 History metformin 500 mg tablet 500 mg PO HS 01/16/21 12/01/22 History sitagliptin phosphate 100 mg 100 mg PO QAM 01/16/21 12/01/22 History tablet (Januvia) bupropion HCl 300 mg 24 hr tablet, 300 mg PO DAILY 08/14/21 12/01/22 History extended release meloxicam 15 mg tablet 15 mg PO QAM #20 tabs 12/26/21 12/01/22 Rx amoxicillin 500 mg tablet 2,000 mg PO ONCE PRN prophylaxis 03/10/22 12/01/22 Rx #4 tabs R-Chop Chemo 1 dose IV MO 12/01/22 12/01/22 History acetaminophen 650 mg 1,300 mg PO Q12H PRN Pain 12/01/22 12/01/22 History tablet,extended release ondansetron HCl 8 mg tablet 8 mg PO Q8 PRN Nausea 12/01/22 12/01/22 History prednisone 50 mg tablet 100 mg PO DIRECTED 12/01/22 12/01/22 History Patient History Medical History (Updated 12/03/22 @ 09:13 by Kiersten Osuna MD) Abdominal hernia Current Anxiety Diabetes mellitus, type 2 NIDDM History of diverticulitis ~5 years ago History of intestinal obstruction 2018 s/p colon resection HTN (hypertension) Hyperlipidemia Morbid obesity Obstructive sleep apnea CPAP (compliant) Osteoarthritis Restless leg syndrome HX Surgical History History of arthroscopy Right knee History of breast biopsy Benign History of cataract surgery R/L History of cholecystectomy History of colon resection History of colonoscopy History of herniorrhaphy Abdominal History of total knee replacement R/L [place] teeth removed Family History Mother Family history of diabetes mellitus Father Family history of diabetes mellitus Other Breast cancer Family history of high blood pressure No family history of adverse response to anesthesia Obstructive sleep apnea Stroke Social History Smoking Status: Never smoker Second Hand Exposure: No; Do You Dip or Chew Tobacco: No; Tobacco Cessation Education Requested by Patient: No Hx Alcohol Use: No Hx Substance Use: No Preferred Language: Italian Communication Ability: Effective Indian Nanny Required: No Beliefs That Will Affect Care: None marital status: Current Living Situation: Spouse How many Children do You have: 1 Other Information That Helps Us Care for You: No Feels Safe at Home: Yes Safety Concerns: Feels Safe At This Time Assistive Devices: Cane Review of System A complete ROS was performed and is negative except as mentioned in the HPI. Physical Exam Physical Exam: GEN: Well-appearing, in NAD. HEENT: Normocephalic, atraumatic. EOMI RESP: No increased work of breathing ABD: Soft, non-distended. Non-tender to palpation. EXT: No LE edema. Warm, well-perfused.Old well-healed scars on knees. SKIN: No lesions or rashes on exposed skin. R upper chest port without erythema NEURO: Alert and oriented. Answers all questions appropriately. Speech not slurred. PSYCH: Normal mood, affect appropriate. Results & Data Vital Signs (Past 12 Hours) Vital Signs Temp Pulse Pulse Resp BP Pulse Ox O2 Del Method 12/03/22 07:00 91 H 12/03/22 07:18 36.7 C 79 18 118/69 97 CPAP 12/03/22 02:34 36.6 C 86 18 100/49 L 97 BiPAP 12/03/22 00:00 102 H 12/02/22 23:29 36.6 C 95 H 18 108/60 96 BiPAP Laboratory Results Short CBC 12/02/22 12/03/22 Range/Units 19:08 05:32 WBC 0.27 L* (4.8-10.8) K/ul Hgb 7.1 L 7.0 L (12.0-16.0) g/dl Hct 21.3 L 21.3 L (37.0-47.0) % Plt Count 110 L (130-400) K/uL BMP 12/03/22 05:32 Sodium 138 Potassium 3.1 L Chloride 108 H Carbon Dioxide 23 BUN 9 Creatinine 0.43 L Glucose 133 H Calcium 8.9 Diagnostic Findings Chest X-Ray 12/01/22 16:11 XR chest 1V portable CLINICAL HISTORY: Sepsis. COMPARISON STUDY: Chest CT September 13, 2017. Chest radiograph January 21, 2021. FINDINGS: Right internal jugular [id number] is in place. Lung volumes are normal. Lungs are clear. There is no pneumothorax or pleural effusion. Cardiac size is normal. Opacity at the right cardiophrenic angle is unchanged and likely reflects epicardial fat pad. There is no evidence for pulmonary edema. IMPRESSION: No acute cardiopulmonary findings. ACT 112: Negative or not required by law. Electronically signed by: Raul Armijo M.D. 12/01/2022 5:05 PM Abdomen/Pelvis CT 12/01/22 16:21 CT SCAN OF THE ABDOMEN AND PELVIS WITH IV CONTRAST CLINICAL HISTORY: Fever. COMPARISON STUDY: Abdominal CT dated 04/26/2018. TECHNIQUE: Following the IV administration of 93 cc of Optiray 320, CT scan of the abdomen and pelvis is performed from the lung bases to the proximal femora. Images are reviewed in the axial, sagittal, and coronal planes. IV contrast was administered without complication. A dose lowering technique was utilized adhering to the principles of ALARA. CT DOSE: 1331.08 mGy.cm FINDINGS: Lung bases: The tip of a central venous infusion port terminates at the cavoatrial junction. The heart is normal in size and without pericardial effusion. The lung bases are clear noting bibasilar scarring/atelectasis. Liver: The contrast-enhanced liver is enlarged, measuring 23.8 cm in length. The liver demonstrates diffusely diminished attenuation indicating steatosis. There is no intrahepatic biliary ductal dilatation. The hepatic veins and portal veins are patent. Gallbladder: Not identified and presumed surgically absent. Spleen: Normal in size and attenuation. Pancreas: Unremarkable. Adrenal glands: A 2.4 cm right adrenal nodule is similar to previous. The left adrenal gland is normal in appearance. Kidneys: The contrast enhanced kidneys are normal in size and without hydronephrosis. The kidneys enhance symmetrically. Abdominal vasculature: The abdominal aorta is normal in course and caliber. Bowel: There is no bowel obstruction. Portions of the small bowel and colon are contained within a ventral hernia in the pelvis. Several bowel loops also protrude through diastases of the rectus musculature. The appendix is well- visualized and normal. Peritoneum: There is no intraperitoneal free air or abdominal ascites. There is laxity of the ventral abdominal wall with marked diastases of the rectus musculature and protrusion of abdominal contents. A bowel containing ventral hernia is seen in the pelvis. Lymphadenopathy: None. Pelvic viscera: Evaluation of the pelvis is degraded by streak artifact from a right hip arthroplasty. The bladder is normal as visualized. Uterine fibroids are suspected. No adnexal lesion is seen. Skeletal structures: The skeletal structures are osteopenic. There is moderate lumbosacral spondylosis. No lytic or blastic lesions are seen. A right hip arthroplasty is in place. IMPRESSION: 1. No acute infectious or inflammatory findings are identified in the abdomen or pelvis. 2. Hepatomegaly and severe hepatic steatosis. 3. There is laxity of the ventral abdominal wall with marked diastases of the rectus musculature and protrusion of bowel contents. This has progressed from previous. 4. A large ventral hernia in the pelvis contains nonobstructed bowel loops. 5. Additional findings as above. ACT 112: Negative or not required by law. Electronically signed by: Josué Judd M.D. 12/01/2022 5:52 PM Medications Administered Current Inpatient Medications Acetaminophen (Acetaminophen 325 Mg Tab) 650 mg PO Q4H PRN PRN Reason: Headache Stop: 01/01/23 13:51 Last Admin: 12/02/22 14:05 Dose: 650 mg Bupropion HCl (Bupropion Xl 300 Mg Tabcr) 300 mg PO DAILY [facility] Stop: 01/01/23 08:59 Last Admin: 12/03/22 09:10 Dose: 300 mg Dextrose (Dextrose 50% 50 Ml Syringe) 25 - 50 ml IV UD PRN; Protocol PRN Reason: Hypoglycemia Protocol Stop: 12/31/22 21:03 Enoxaparin Sodium (Enoxaparin Inj 40 Mg/0.4 Ml Syr) 40 mg SQ BID [facility] Stop: 12/31/22 21:14 Last Admin: 12/03/22 09:10 Dose: 40 mg Escitalopram Oxalate (Escitalopram Oxalate 20 Mg Tab) 20 mg PO HS [facility] Stop: 01/01/23 22:24 Last Admin: 12/02/22 22:54 Dose: 20 mg Glucagon (Glucagon For Inj 1 Mg Vial) 1 mg SQ UD PRN; Protocol PRN Reason: Hypoglycemia Protocol Stop: 12/31/22 21:03 Glucose (Glucose 10 Tab/Tube) 4 - 8 tab PO UD PRN; Protocol PRN Reason: Hypoglycemia Treatment Stop: 12/31/22 21:03 Glucose (Glucose 40% Gel 15 Gm Tube) 15 - 30 gm PO UD PRN; Protocol PRN Reason: Hypoglycemia Protocol Stop: 12/31/22 21:03 Heparin Sodium (Porcine) (Heparin 100 Unit/Ml 5ml Flush) 5 ml FLUSH PRN PRN PRN Reason: Flush Stop: 12/31/22 23:40 Last Admin: 12/03/22 07:14 Dose: 5 ml Vancomycin HCl 1,250 mg/ (Sodium Chloride) 275 mls @ 200 mls/hr IV Q12H [facility] Stop: 12/03/22 09:30 Last Infusion: 12/03/22 07:18 Dose: Infused Cefepime HCl 2,000 mg/ Syringe 20 mls @ 5 mls/min IV Q8H [facility] Stop: 12/16/22 11:59 Last Admin: 12/03/22 05:40 Dose: 5 mls/min Insulin Aspart (Insulin Aspart Per Unit Charge) 0 units SC ACHS [facility] Stop: 12/31/22 21:29 Last Admin: 12/03/22 07:46 Dose: Not Given Insulin Glargine (Lantus Per Unit Charge) 0 units SQ HS [facility]; Protocol Stop: 01/01/23 20:59 Last Admin: 12/02/22 20:39 Dose: 8 units Melatonin (Melatonin 3 Mg Tab) 4.5 mg PO HSZ PRN PRN Reason: Sleep Stop: 12/31/22 21:12 Last Admin: 12/02/22 22:54 Dose: 4.5 mg Miscellaneous (Carbohydrates For Hypoglycemia ) 15 - 30 gm PO UD PRN PRN Reason: Hypoglycemia Protocol Stop: 12/31/22 21:03 Miscellaneous Information (Pharmacy Glycemic Mgmt Consult) 1 each N/A UD PRN PRN Reason: Consult Stop: 12/31/22 21:03 Pravastatin Sodium (Pravastatin Sod 10 Mg Tab) 10 mg PO [facility] Stop: 01/01/23 08:59 Last Admin: 12/03/22 09:11 Dose: 10 mg
[2022-12-03] MEDS: PRAVASTATIN SOD 10 MG TAB PO SCH (09:11)
--- NOTE | 2022-12-03 10:04 | Pharmacy Report ---
Pharmacy Glycemic Short Note 2 - Date of Service December 03, 2022 - Glycemic Short BSG Results (Last 24 hours): 12/02/22 12/02/22 12/02/22 11:19 16:24 20:07 Glucose POC Glucose 96 132 H 164 H 12/03/22 12/03/22 05:32 07:15 Glucose 133 H POC Glucose 135 H OUTPATIENT ANTIDIABETIC REGIMEN: * Glipizide 10mg PO BID * Metformin 1000mg PO BID * Januvia 100mg PO Daily ASSESSMENT: 12/03/22 * Blood sugars well controlled on 8 units Lantus daily plus correctional insulin as needed, no CR, continue regimen. * ID consult, de-escalated antibx to IV Ceftriaxone daily. 12/02/22 * 67 year old female, admitted with neutropenic fever, on IV antibiotics, type 2 DM, on orals as above. * Patient received 18 units of insulin yesterday, 10 units basal, Blood sugar at goal at 111mg/dl this AM. * Patient refused carb coverage for breakfast this morning. * Continue insulin SQ regimen at this time, loosen CF/CR slightly, may have hyperglycemia d/t patient refusing doses. PLAN FOR INPATIENT GLYCEMIC CONTROL: * Hold outpatient oral diabetes medications * Basal insulin * Lantus 8 units SQ HS for BSG 140mg/dl or greater, (0 units for BSG < 140mg/dl) * Bolus insulin * NovoLog per scale ACHS or Q6hrs while NPO * Goal Range: Low 110 mg/dL - High 140 mg/dL * Correction Factor: 20 mg/dL/unit * Nutritional / Prandial insulin - none
[2022-12-03] MEDS ORDERED: cefTRIAXone SODIUM 2,000 MG in DEXTROSE 5% 50 ML IV SCH (11:45)
[2022-12-03] MEDS ORDERED: SODIUM CHLORIDE 0.9% 250 ML IV PRN (12:05)
[2022-12-03] MEDS ORDERED: POTASSIUM CHLORIDE CRTAB 20 MEQ TABCR PO STA (12:09)
[2022-12-03] MEDS ORDERED: MAGNESIUM SULFATE / D5W 1 GM/100 ML BAG IV ONE (12:09)
[2022-12-03] MEDS: cefTRIAXone SODIUM 2,000 MG in DEXTROSE 5% 50 ML IV SCH (13:11)
[2022-12-03] MEDS ORDERED: VANCOMYCIN HCL 1,500 MG in SODIUM CHLORIDE 0.9% 500 ML IV SCH (14:00)
[2022-12-03] MEDS: POTASSIUM CHLORIDE CRTAB 20 MEQ TABCR PO SCH ×2 (14:02→21:07)
[2022-12-03] MEDS ORDERED: ESCITALOPRAM OXALATE 20 MG TAB PO SCH (21:00)
[2022-12-03] MEDS: ESCITALOPRAM OXALATE 20 MG TAB PO SCH (21:07)
[2022-12-03] MEDS: MELATONIN 3 MG TAB PO PRN (21:08)
[2022-12-03] MEDS: LANTUS PER UNIT CHARGE SQ SCH (21:10)
--- NOTE | 2022-12-04 07:19 | Hospitalist Progress Note ---
Date of Service December 04, 2022 Assessment & Plan (1) Neutropenic sepsis: Plan: Gram negative bacteremia and sepsis, suspected urinary source vs gut translocation - infectious disease feels we can use ceftriaxone at this time de-escalation Neutropenic isolation precautions previous attending Discussed with Dr Feliz ([facility] oncology), treated for B cell lymphoma pt had Neulasta therefore no need for Neupogen at this time. Lactate 5.6 -> 4.8 clinically showing improvement. infectious disease consult feels no need to remove port at this time Patient with pancytopenia secondary to chemotherapy anemia, will obtain consent for blood transfusion 2 units packed red blood cells given 12/03 (2) Obstructive sleep apnea: Plan: chronic and stable CPAP [id number] (3) Diabetes mellitus type II, non insulin dependent: Plan: Hemoglobin A1C 8.7, hold all home meds- basal bolus Lantus 10 units BID Novolog: --Goal BSG Range: Low 110 mg/dL, High 140 mg/dL --Correction Factor: 30 mg/dL/unit --Carbohydrate ratio = 10 g/unit --BSGs ACHS if eating, q6h if npo (4) HTN (hypertension): Plan: typically chronic stable htn, blood pressures rebounded restart olmesartan on 12/04 Plan VTE Prophylaxis - Lovenox 40 mg SQ BID Admission and Anticipated Discharge Date Admission Date: December 01, 2022 Subjective pt feels improved after transfusion, still neutropenic Physical Exam Physical Exam: patient awake alert appropriate she has no focal signs or symptoms no evidence of oral thrush or skin lesions her cardiac exam is regular lungs are clear abdomen NABS soft Results & Data Results & Data Vital Signs (Past 12 Hours) Vital Signs Temp Pulse Pulse Resp BP BP Pulse Ox 12/04/22 03:35 85 12/04/22 03:00 99.3 F 80 18 142/85 H 99 12/03/22 23:00 99.5 F 90 16 143/74 H 97 12/03/22 20:05 100.8 F H 98 H 16 131/75 96 O2 Del Method 12/04/22 03:35 12/04/22 03:00 Room Air 12/03/22 23:00 Room Air 12/03/22 20:05 Laboratory Results Reviewed CBC Reviewed chemistry PG Care Time/CCT Total # of Minutes Spent Total Time Spent with Patient: Total time spent is greater than 50% in coordination of care (as documented) at patient's floor/unit and/or counseling patient: Coding Level of Care Code 02230 SUB INP/OBS CARE MIN Diagnoses Neutropenic sepsis A41.9; D70.9 Obstructive sleep apnea G47.33 Diabetes mellitus type II, non insulin dependent E11.9 HTN (hypertension) I10
[2022-12-04] MEDS: POTASSIUM CHLORIDE CRTAB 20 MEQ TABCR PO SCH ×3 (07:55→22:26)
[2022-12-04] MEDS: LOSARTAN POTASSIUM 25 MG TAB PO SCH (07:55)
[2022-12-04] MEDS: INSULIN ASPART PER UNIT CHARGE SC SCH ×4 (07:55→22:31)
[2022-12-04] MEDS: ENOXAPARIN INJ 40 MG/0.4 ML SYR SQ SCH ×2 (07:58→22:27)
[2022-12-04] MEDS: PRAVASTATIN SOD 10 MG TAB PO SCH (07:59)
[2022-12-04] MEDS: buPROPion XL 300 MG TABCR PO SCH (07:59)
[2022-12-04 08:36] LABS: BUN Creatinine Ratio 19.1 (10-20); Calcium 9.7 mg/dl (8.6-10.3); Creatinine Clr Calc Pharmacy 161.3 ml/min; Est GFR (African American) 119.3 ml/min; Est GFR (Non-African American) 102.9 ml/min; Potassium 3.9 mmol/L (3.5-5.1)
[2022-12-04 09:41] LABS: Hematocrit (blood only) 27.8 % (37.0-47.0); Hemoglobin 9.5 g/dl (12.0-16.0); Mean Corpuscular Hemoglobin 31.4 pg (25.0-34.0); Mean Corpuscular Hgb Conc 34.2 g/dL (32.0-36.0); Mean Corpuscular Volume 91.7 fL (80.0-100.0); Mean Platelet Volume 11.2 fL (9.4-12.4); Platelet Count 123 K/uL (130-400); RDW Coefficient of Variation 19.9 % (11.5-14.5); RDW Standard Deviation 67.6 fL (36.4-46.3); Red Blood Count 3.03 M/uL (4.20-5.40)
[2022-12-04] MEDS ORDERED: FILGRASTIM 480 MCG/1.6 ML VIAL SC ONE (11:22)
[2022-12-04] MEDS ORDERED: FUROSEMIDE INJ 20 MG/2 ML VIAL IV SCH (12:20)
[2022-12-04] MEDS: cefTRIAXone SODIUM 2,000 MG in DEXTROSE 5% 50 ML IV SCH (12:58)
--- NOTE | 2022-12-04 13:38 | Infectious Disease Progress Nt ---
Date of Service December 04, 2022 Assessment & Plan (1) Neutropenic sepsis: (2) E coli bacteremia: Plan Micro: 12/03 BCx x2: NGTD 12/01 UA >30 WBCs. UCx three types of organisms, all low counts probable skin jake 12/01 BCx x2: E coli in 1/4 bottles (S amox/clav, ceftriaxone, levo, TMP/SMX, pip/tazo. R amp, gent. I amp/sul, cefaz, cipro). 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 Pt reports frequent UTIs following chemotherapy. Last week prior to chemotherapy, she had symptoms of urinary pressure and was tested for a UTI and was negative. This subsided, and she underwent chemotherapy on 11/26, and returned on 11/27 for Neulasta. She felt well, until the day of presentation when she had fever to 102.4, rigors, generalized weakness, and urinary pressure again. She denied dysuria, flank pain. On presentation, T 37.5, BP 82/49, WBC 0.12, lactate 5.6, procal 1.41. UA >30 WBCs, UCx pending. BCx grew E coli; no resistance detected on [employer]. CXR without acute findings. CT A/P with contrast showed no acute infectious or inflammatory findings in the abdomen or pelvis. Pt was started on vanc, meropenem, which was de-escalated to vanc, cefepime, then ceftriaxone alone. Pt is feeling improved. Reports improvement in her urinary symptoms. Unclear source of pt's E coli bacteremia--could consider urinary source given her urinary symptoms (although CT A/P without findings in urinary tract). Also consider translocation from GI tract in the setting of her neutropenia, as pt has intermittent diarrhea. Has history of bilateral TKA without knee pain/er ythema. Pt has a port, but no surrounding erythema. The E coli grew in only 1/4 bottles in the admission blood culture, with repeat blood culture pending. Recommendations: -Continue ceftriaxone 2 g IV daily. Continue on discharge, administered through the port, for 14 days through 12/14 -Follow-up repeat blood cultures from 12/03. If pt is clinically improved and no further bacteremia from 12/03, will be able to retain the port. Will sign off. Please re-involve ID if 12/03 BCx become positive again. Please page [facility] with further questions. Admission and Anticipated Discharge Date Admission Date: December 01, 2022 Subjective This patient recommendation is based on a telemedicine consult request which was completed asynchronously through chart review and information provided by the primary physician. The patient was not seen or examined today. The evaluation is consultative in nature and all patient care and treatment decisions can either be accepted or rejected by the patient's primary hospital-based treating physician using their own independent medical judgment for their patient. Time Spent Reviewing Chart: 11 - 20 minutes pt not seen 12/03 BCx NGTD Review of System Pt was not seen Physical Exam Physical Exam: Pt was not seen Results & Data Vital Signs (Past 12 Hours) Vital Signs Temp Pulse Pulse Resp BP Pulse Ox O2 Del Method 12/04/22 10:51 37.3 C 80 18 127/88 96 Room Air 12/04/22 08:00 71 12/04/22 07:07 37.1 C 81 18 115/77 97 CPAP 12/04/22 03:35 85 12/04/22 03:00 37.4 C 80 18 142/85 H 99 Room Air Laboratory Results Short CBC 12/04/22 Range/Units 07:50 WBC 0.30 L* (4.8-10.8) K/ul Hgb 9.5 L (12.0-16.0) g/dl Hct 27.8 L (37.0-47.0) % Plt Count 123 L (130-400) K/uL BMP 12/04/22 07:50 Sodium 136 Potassium 3.9 D Chloride 107 Carbon Dioxide 24 BUN 9 Creatinine 0.47 L Glucose 140 H Calcium 9.7 Medications Administered Current Inpatient Medications Acetaminophen (Acetaminophen 325 Mg Tab) 650 mg PO Q4H PRN PRN Reason: Headache Stop: 01/01/23 13:51 Last Admin: 12/02/22 14:05 Dose: 650 mg Bupropion HCl (Bupropion Xl 300 Mg Tabcr) 300 mg PO DAILY LEXI Stop: 01/01/23 08:59 Last Admin: 12/04/22 07:59 Dose: 300 mg Dextrose (Dextrose 50% 50 Ml Syringe) 25 - 50 ml IV UD PRN; Protocol PRN Reason: Hypoglycemia Protocol Stop: 12/31/22 21:03 Enoxaparin Sodium (Enoxaparin Inj 40 Mg/0.4 Ml Syr) 40 mg SQ BID LEXI Stop: 12/31/22 21:14 Last Admin: 12/04/22 07:58 Dose: 40 mg Escitalopram Oxalate (Escitalopram Oxalate 20 Mg Tab) 20 mg PO HS [facility] Stop: 01/01/23 22:24 Last Admin: 12/03/22 21:07 Dose: 20 mg Furosemide (Furosemide Inj 20 Mg/2 Ml Vial) 20 mg IV TODAY@1220 LEXI Stop: 12/04/22 18:00 Last Admin: 12/04/22 12:58 Dose: 20 mg Glucagon (Glucagon For Inj 1 Mg Vial) 1 mg SQ UD PRN; Protocol PRN Reason: Hypoglycemia Protocol Stop: 12/31/22 21:03 Glucose (Glucose 10 Tab/Tube) 4 - 8 tab PO UD PRN; Protocol PRN Reason: Hypoglycemia Treatment Stop: 12/31/22 21:03 Glucose (Glucose 40% Gel 15 Gm Tube) 15 - 30 gm PO UD PRN; Protocol PRN Reason: Hypoglycemia Protocol Stop: 12/31/22 21:03 Heparin Sodium (Porcine) (Heparin 100 Unit/Ml 5ml Flush) 5 ml FLUSH PRN PRN PRN Reason: Flush Stop: 12/31/22 23:40 Last Admin: 12/03/22 07:14 Dose: 5 ml Ceftriaxone Sodium 2,000 mg/ (Dextrose) 70 mls @ 140 mls/hr IV Q24H LEXI Stop: 12/17/22 11:59 Last Infusion: 12/04/22 13:32 Dose: Infused Insulin Aspart (Insulin Aspart Per Unit Charge) 0 units SC ACHS [facility] Stop: 12/31/22 21:29 Last Admin: 12/04/22 11:54 Dose: Not Given Insulin Glargine (Lantus Per Unit Charge) 0 units SQ HS [facility]; Protocol Stop: 01/01/23 20:59 Last Admin: 12/03/22 21:10 Dose: 8 units Losartan Potassium (Losartan Potassium 25 Mg Tab) 12.5 mg PO QAM [facility] Stop: 01/03/23 08:59 Last Admin: 12/04/22 07:55 Dose: 12.5 mg Melatonin (Melatonin 3 Mg Tab) 4.5 mg PO HSZ PRN PRN Reason: Sleep Stop: 12/31/22 21:12 Last Admin: 12/03/22 21:08 Dose: 4.5 mg Miscellaneous (Carbohydrates For Hypoglycemia ) 15 - 30 gm PO UD PRN PRN Reason: Hypoglycemia Protocol Stop: 12/31/22 21:03 Miscellaneous Information (Pharmacy Glycemic Mgmt Consult) 1 each N/A UD PRN PRN Reason: Consult Stop: 12/31/22 21:03 Potassium Chloride (Potassium Chloride Crtab 20 Meq Tabcr) 20 meq PO TID [facility] Stop: 12/05/22 09:01 Last Admin: 12/04/22 12:58 Dose: 20 meq Pravastatin Sodium (Pravastatin Sod 10 Mg Tab) 10 mg PO QAM [facility] Stop: 01/01/23 08:59 Last Admin: 12/04/22 07:59 Dose: 10 mg
[2022-12-04] MEDS: MELATONIN 3 MG TAB PO PRN (22:25)
[2022-12-04] MEDS: ESCITALOPRAM OXALATE 20 MG TAB PO SCH (22:26)
[2022-12-04] MEDS: LANTUS PER UNIT CHARGE SQ SCH (22:28)
[2022-12-05 08:12] LABS: Dohle Bodies 1+; Hematocrit (blood only) 26.4 % (37.0-47.0); Hemoglobin 9.1 g/dl (12.0-16.0); Mean Corpuscular Hemoglobin 31.9 pg (25.0-34.0); Mean Corpuscular Hgb Conc 34.5 g/dL (32.0-36.0); Mean Corpuscular Volume 92.6 fL (80.0-100.0); Mean Platelet Volume 10.9 fL (9.4-12.4); Platelet Count 100 K/uL (130-400); Polychromasia 1+; RDW Coefficient of Variation 19.3 % (11.5-14.5); Red Blood Count 2.85 M/uL (4.20-5.40); Tear Drop Cells 1+; White Blood Count 1.15 K/ul (4.8-10.8)
[2022-12-05] MEDS: LOSARTAN POTASSIUM 25 MG TAB PO SCH (08:55)
[2022-12-05] MEDS: buPROPion XL 300 MG TABCR PO SCH (08:55)
[2022-12-05] MEDS: POTASSIUM CHLORIDE CRTAB 20 MEQ TABCR PO SCH (08:55)
[2022-12-05] MEDS: ENOXAPARIN INJ 40 MG/0.4 ML SYR SQ SCH ×2 (08:56→21:28)
[2022-12-05] MEDS: PRAVASTATIN SOD 10 MG TAB PO SCH (08:56)
[2022-12-05] MEDS: INSULIN ASPART PER UNIT CHARGE SC SCH ×4 (09:03→21:08)
[2022-12-05 09:06] LABS: Basophils # (auto) 0.03 K/uL (0-0.2); Basophils % (auto) 2.6 %; Eosinophils # (auto) 0.07 K/uL (0-0.50); Eosinophils % (auto) 6.1 %; Immature Granulocytes # (auto) 0.11 K/uL (0.01-0.20); Immature Granulocytes % (auto) 9.6 %; Lymphocytes # (auto) 0.11 K/uL (1.2-3.4); Lymphocytes % (auto) 9.6 %; Monocytes % (auto) 8.7 %; Neutrophils # (auto) 0.73 K/uL (1.40-6.50); Neutrophils % (auto) 63.4 %
[2022-12-05 09:57] LABS: BUN Creatinine Ratio 16.7 (10-20); Calcium 9.6 mg/dl (8.6-10.3); Creatinine Clr Calc Pharmacy 178.7 ml/min; Est GFR (African American) 123.8 ml/min; Est GFR (Non-African American) 106.8 ml/min; Potassium 3.8 mmol/L (3.5-5.1)
[2022-12-05] MEDS: cefTRIAXone SODIUM 2,000 MG in DEXTROSE 5% 50 ML IV SCH (12:23)
--- NOTE | 2022-12-05 15:38 | Hospitalist Progress Note ---
Date of Service December 05, 2022 Assessment & Plan (1) Neutropenic sepsis: Plan: Gram negative bacteremia and sepsis, suspected urinary source vs gut translocation - infectious disease feels we can use ceftriaxone at this time de-escalation Neutropenic isolation precautions continuous ANC is 730 previous attending Discussed with Dr Feliz ([facility] oncology), treated for B cell lymphoma pt had Neulasta therefore no need for Neupogen at this time. Lactate 5.6 -> 4.8 clinically showing improvement. infectious disease consult feels no need to remove port at this time we will infuse ceftriaxone via port at home to complete 2 weeks of therapy last dose December 15 Patient with pancytopenia secondary to chemotherapy anemia, will obtain consent for blood transfusion 2 units packed red blood cells given 12/03 (2) Obstructive sleep apnea: Plan: chronic and stable CPAP [id number] (3) Diabetes mellitus type II, non insulin dependent: Plan: Hemoglobin A1C 8.7, hold all home meds- basal bolus Lantus 10 units BID Novolog: --Goal BSG Range: Low 110 mg/dL, High 140 mg/dL --Correction Factor: 30 mg/dL/unit --Carbohydrate ratio = 10 g/unit --BSGs ACHS if eating, q6h if npo (4) HTN (hypertension): Plan: typically chronic stable htn, blood pressures rebounded restart olmesartan on 12/04 Plan VTE Prophylaxis - Lovenox 40 mg SQ BID Admission and Anticipated Discharge Date Admission Date: December 01, 2022 Subjective Pt states she is not feeling well today, has minor sore throat did have some rise in WBC but still neutropenic Physical Exam Physical Exam: patient awake alert appropriate she has no focal signs or symptoms no evidence of oral thrush or skin lesions her cardiac exam is regular lungs are clear abdomen NABS soft Results & Data Results & Data Vital Signs (Past 12 Hours) Vital Signs Temp Pulse Pulse Resp BP Pulse Ox O2 Del Method 12/05/22 15:20 98.8 F 90 20 147/76 H 96 Room Air 12/05/22 15:00 82 12/05/22 11:35 99.7 F H 83 16 111/61 96 Room Air 12/05/22 08:24 98.2 F 88 16 133/84 97 Room Air 12/05/22 03:46 98.1 F 81 18 134/64 98 CPAP Laboratory Results reviewed CBC reviewed chemistry PG Care Time/CCT Total # of Minutes Spent Total Time Spent with Patient: Total time spent is greater than 50% in coordination of care (as documented) at patient's floor/unit and/or counseling patient: Coding Level of Care Code 15955 SUB INP/OBS CARE 2/35MIN Diagnoses Neutropenic sepsis A41.9; D70.9 Obstructive sleep apnea G47.33 Diabetes mellitus type II, non insulin dependent E11.9 HTN (hypertension) I10
[2022-12-05] MEDS: HEPARIN 100 UNIT/ML 5ML FLUSH FLUSH PRN (17:19)
[2022-12-05] MEDS: LANTUS PER UNIT CHARGE SQ SCH (21:28)
[2022-12-05] MEDS: ESCITALOPRAM OXALATE 20 MG TAB PO SCH (21:28)
[2022-12-05] MEDS: MELATONIN 3 MG TAB PO PRN (21:30)
[2022-12-06 07:04] LABS: Hematocrit (blood only) 26.7 % (37.0-47.0); Hemoglobin 8.9 g/dl (12.0-16.0); Mean Corpuscular Hemoglobin 31.7 pg (25.0-34.0); Mean Corpuscular Hgb Conc 33.3 g/dL (32.0-36.0); Mean Platelet Volume 11.1 fL (9.4-12.4); Platelet Count 125 K/uL (130-400); RDW Coefficient of Variation 18.7 % (11.5-14.5); RDW Standard Deviation 65.6 fL (36.4-46.3); Red Blood Count 2.81 M/uL (4.20-5.40)
[2022-12-06 07:12] LABS: BUN Creatinine Ratio 12.5 (10-20); Calcium 9.5 mg/dl (8.6-10.3); Est GFR (African American) 118.5 ml/min; Est GFR (Non-African American) 102.2 ml/min; Potassium 3.7 mmol/L (3.5-5.1)
[2022-12-06] MEDS ORDERED: LORazepam 2 MG/1 ML VIAL IV PRN (07:49)
[2022-12-06] MEDS: INSULIN ASPART PER UNIT CHARGE SC SCH ×2 (08:42→12:30)
[2022-12-06] MEDS: PRAVASTATIN SOD 10 MG TAB PO SCH (08:44)
[2022-12-06] MEDS: ENOXAPARIN INJ 40 MG/0.4 ML SYR SQ SCH (08:45)
[2022-12-06] MEDS: buPROPion XL 300 MG TABCR PO SCH (08:45)
[2022-12-06] MEDS: LOSARTAN POTASSIUM 25 MG TAB PO SCH (08:45)
[2022-12-06 08:56] LABS: ALC (manual) 0.32 K/uL (1.2-3.4); ANC (manual) 1.94 K/uL (1.4-6.5); Basophils # (manual) 0.15 K/uL (0-0.2); Basophils % (manual) 5 %; Blast Cells % (manual) 1 %; Eosinophils # (manual) 0.12 K/uL (0-0.50); Eosinophils % (manual) 4 %; Lymphocytes # (manual) 0.29 K/uL (1.2-3.4); Lymphocytes % (manual) 10 %; Metamyelocytes # (manual) 0.12 K/uL (0-0); Metamyelocytes % (manual) 4 %; Monocytes # (manual) 0.17 K/uL (0.11-0.59); Monocytes % (manual) 6 %; Myelocytes # (manual) 0.09 K/uL (0-0); Myelocytes % (manual) 3 %; Neutrophils # (manual) 1.94 K/uL (1.40-6.50); Neutrophils % (manual) 67 %; Plasma Cells # (manual) 0.03 K/uL (0-0); Plasma Cells % (manual) 1 %; RBC Morphology Unremarkable
[2022-12-06 08:58] LABS: Blast # (manual) 0.03 K/uL (0-0)
[2022-12-06] MEDS: cefTRIAXone SODIUM 2,000 MG in DEXTROSE 5% 50 ML IV SCH (11:59)
[2022-12-06] MEDS: HEPARIN 100 UNIT/ML 5ML FLUSH FLUSH PRN (12:46)
--- NOTE | 2022-12-06 13:53 | Discharge Summary ---
Discharge Summary Date of Service December 06, 2022 Admission HPI Per Admitting Provider Hanny Gamboa is a 67 year old female with large B cell lymphoma on HOP chemotherapy who presents to the ER with fever and urinary symptoms. She reports frequent UTIs following chemotherapy. On Wednesday or Wednesday last week prior to chemotherapy she was tested for a UTI and negative with symptoms of urinary pressure. It subsided and she underwent chemotherapy on returning for Neulasta on Wednesday. Feeling well until this after noon with temp 102.4 degrees Fahrenheit, associated rigors, generalized weakness and urinary pressure again. She called Dr Katz office and they recommend she comes ot the ER. She denies any dysuria, change in smell, color or urine or flank pain. Principal Dx & Hospital Course #1 = Principal Diagnosis (1) Neutropenic sepsis: Gram negative bacteremia and sepsis, suspected urinary source vs gut translocation - infectious disease feels we can use ceftriaxone at this time de-escalation Neutropenic isolation precautions continuous ANC is 730 previous attending Discussed with Dr Feliz ([facility] oncology), treated for B cell lymphoma pt had Neulasta therefore no need for Neupogen at this time. Lactate 5.6 -> 4.8 clinically showing improvement. infectious disease consult feels no need to remove port at this time we will infuse ceftriaxone via port at home to complete 2 weeks of therapy last dose December 15 given issues with mobility chemotherapeutic administration and fatigue patient will have home health medication ministration via [facility] Patient with pancytopenia secondary to chemotherapy anemia, will obtain consent for blood transfusion 2 units packed red blood cells given 12/03 (2) Obstructive sleep apnea: chronic and stable CPAP [id number] (3) Diabetes mellitus type II, non insulin dependent: Hemoglobin A1C 8.7, we will resume home meds after discharge including sulfonylurea metformin and Januvia (4) HTN (hypertension): typically chronic stable htn, blood pressures rebounded restart olmesartan on 12/04 Discharge Exam patient was seen prior to discharge she was doing well no continued complaints of sore throat Updated Medication List Medication Instructions Recorded Confirmed Type glipizide 10 mg tablet 10 mg PO BID 04/26/18 12/01/22 History metformin 1,000 mg tablet 1,000 mg PO BID 04/26/18 12/01/22 History olmesartan 5 mg tablet 5 mg PO QAM 04/26/18 12/01/22 History pravastatin 10 mg tablet 10 mg PO QAM 07/28/20 12/01/22 History melatonin 5 mg tablet 5 mg PO HS 01/16/21 12/01/22 History metformin 500 mg tablet 500 mg PO HS 01/16/21 12/01/22 History sitagliptin phosphate 100 mg 100 mg PO QAM 01/16/21 12/01/22 History tablet (Januvia) bupropion HCl 300 mg 24 hr tablet, 300 mg PO DAILY 08/14/21 12/01/22 History extended release meloxicam 15 mg tablet 15 mg PO QAM #20 tabs 12/26/21 12/01/22 Rx amoxicillin 500 mg tablet 2,000 mg PO ONCE PRN prophylaxis 03/10/22 12/01/22 Rx #4 tabs R-Chop Chemo 1 dose IV MO 12/01/22 12/01/22 History acetaminophen 650 mg 1,300 mg PO Q12H PRN Pain 12/01/22 12/01/22 History tablet,extended release ondansetron HCl 8 mg tablet 8 mg PO Q8 PRN Nausea 12/01/22 12/01/22 History prednisone 50 mg tablet 100 mg PO DIRECTED 12/01/22 12/01/22 History ceftriaxone 2 gram solution for 1 g IV DAILY #8 ea 12/06/22 Rx injection Hospital Stay Data Consultations 12/01/22 18:41 ED Decision to Admit Stat 12/02/22 22:52 Consult Infectious Diseases Routine Diagnostic Imagining Performed 12/01/22 16:21 CT abd pelvis IV con only Stat Pending Results Patient Have Any Pending Studies at Discharge: No Discharge Instructions Given to Patient (Per Discharging Provider) please report to the medical treatment unit which is entered through the [facility] on 12/07/2022 for an appointment at 1230 please come early to help fill out any paperwork required you will be completing intravenous ceftriaxone therapy for your bacteria in your blood last dose to be December 15 test as you may still feel tired when at home have a nutritious diet to help improve your blood counts and keep yourself hydrated if you have any questions or concerns please call the hospital asked to speak to Dr. Anne [facility] Attestation I certify that this patient is under my care and that I, or a physicians assistant professor of music working with me, had a face to-face encounter that meets the home health [id number] encounter requirements with this patient. The encounter with the patient was in whole, or in part, for the following medical condition, which is the primary reason for home health care (list medical condition): Fever I certify that, based on my findings, the following services are medically necessary home health services: My clinical findings support the need for the above services because: Skilled Nsg Assessment Further, I certify that my clinical findings support that this patient is patric ebound (i.e. absences from home require considerable and taxing effort and are for medical reasons or hinduism services or infrequently or of short duration when for other reasons) because: Certification for Home Health Services: Based on the above findings, I certify that this patient is confined to the home and needs intermittent care home care, physical therapy and/or speech therapy or continues to need occupational therapy. The patient is under my care, and I have initiated the establishment of the plan of care. This patient will be followed by a physician who will periodically review the plan of care. Total Time Total Time Spent Total Time Spent (In Minutes): it required greater than 30 minutes to prepare this patient for discharge Coding Level of Care Code 58038 INP/OBS DISCH >30 MIN Diagnoses Neutropenic sepsis A41.9; D70.9 Obstructive sleep apnea G47.33 Diabetes mellitus type II, non insulin dependent E11.9 HTN (hypertension) I10
[2022-12-06] MEDS ORDERED: LANTUS PER UNIT CHARGE SQ SCH (21:00)
== END 2022-12-06 14:35 | disposition home health service (06) | DRG 871 ==
LOC: ED 15:58 → SUATTDRO 19:06 → 2S 19:06